=== PATIENT | female | born 1965 | race Caucasian/White ===

== ENCOUNTER 2024-02-06 21:19 | Inpatient (IN) | payer OTHER, SELFPAY ==
[2024-02-06] VITALS (12 sets, daily range): BP systolic 119–190; BP diastolic 78–135; BMI 31.4; BMI 29.6
--- NOTE | 2024-02-06 17:02 | ED.GENMED ---
History of Present Illness
<Cailn Robles PA-C - Last Filed: 02/06/24 23:01>
General
Chief Complaint: Head Injury
Time Seen by Provider: 02/06/24 16:45
History of Present Illness
History of Present Illness:
58-year-old female with history of high blood pressure currently medication presents to the urgency department for evaluation of dizziness and difficulty ambulating. She admits to having a drinking binge Saturday as she was 'feeling down and
depressed'. She denies any suicidal or homicidal ideation. States she drank half a handle of vodka, states she was heavily intoxicated and fell numerous times. She woke the next day with significant diffuse body pain and numerous ecchymoses on
the extremities as well as the right forehead. She called out of work for the next several days at which time she essentially laid in bed and did not consume much in the way of fluids or food. She did not drink any further alcohol denies any other
coingestants. She went to work today and was noted to be having difficulty walking and thus was advised to come to the hospital. Currently she reports a mild headache, diffuse body pain, and noted hematuria this morning. Of note the patient
states that she habitually takes 5 Tylenol PM to sleep every day for least the past year and has been taking routine doses throughout the week due to her acute pain, does not take NSAIDs due to gastric bypass
Past History
<Calin Robles PA-C - Last Filed: 02/06/24 23:01>
Past History
ED Past Medical History: HTN
ED Past Surgical History: Other (Gastric bypass)
Social History
Tobacco: Non-smoker
Alcohol: None
Drug: None
Review of Systems
<Calin Robles PA-C - Last Filed: 02/06/24 23:01>
Review of Systems
Allergies reviewed?: Yes
All Other Systems: ROS reviewed and negative except as documented in HPI and ROS
Phy Exam
<Calin Robles PA-C - Last Filed: 02/06/24 23:01>
Physical Exam
Physical Exam:
GEN: Well appearing, NAD, WDWN
Eyes: PERRLA, EOMs intact, no scleral icterus
HENT: NCAT, oral mucosa moist
Lungs: CTAB, no wheezes, rales, rhonchi, normal chest wall excursion
Cardiac: RRR, no M/R/G, no peripheral edema. Radial pulses 2+ bilat
Abdomen: Soft, mild epigastric tenderness, no rigidity or peritoneal signs
Neuro: AO x 3, no focal deficits to BUE/BLE, normal sensation throughout
MSK: No gross deformity or ecchymosis. Diffuse ecchymosis to the upper and lower extremities
Skin: No rashes, petechiae. Normal color, no pallor or jaundice.
Psych: Calm, cooperative, proper hygiene
Course
<Calin Robles PA-C - Last Filed: 02/06/24 23:01>
Orders/Labs/Results
Orders:
Orders
02/06/24 Dinner
Regular
02/06/24 16:[address] [CT Head W/o Iv Contrast] Urgent
Comment:
Reason For Exam: trauma, headache
02/06/24 17:03
Acetaminophen Urgent
Comment: ADDON
Complete Blood Count/With Diff Urgent
Comprehensive Metabolic Panel Urgent
Creatine Phosphokinase Urgent
Comment: ADD ON
Hepatitis A IgM Antibody Urgent
Hepatitis B Core Ab, IgM Urgent
Hepatitis B Surface Antigen Urgent
Hepatitis C Antibody Urgent
Magnesium Urgent
Comment: ADD ON
Phosphorus Urgent
Comment: ADD ON
Salicylate Urgent
Comment: ADDON
02/06/24 17:32
Lactated Ringers [Lr] 1,000 ml IV BOLUS
02/06/24 17:35
Add On- LAB Urgent
Tests Added?: CPK
02/06/24 18:21
HYDROmorphone [Dilaudid] 0.25 mg IV NOW STA
02/06/24 18:43
Add On- LAB Urgent
Tests Added?: acetaminophen, salicylate
02/06/24 18:44
Prothrombin Time Urgent
02/06/24 18:57
Venous Blood Gas Urgent
%Oxygen/Room Air: 98
02/06/24 19:50
0.9% Sodium Chloride 1000 ml [Nss] 1,000 ml IV BOLUS
02/06/24 20:02
Acetylcysteine [Acetadote] 12,840 mg 0.45% Sodium Chloride 250 ml [0.45%NaCl] 200 ml IV NOW
02/06/24 20:09
Fomepizole 1,280 mg 0.9% Sodium Chloride 100 ml [Nss] 100 ml IV NOW
02/06/24 20:15
Urinalysis Reflex To Culture Urgent
Date Specimen was Collected: 02/06/24
Time Specimen was Collected: 19:00
Urine Drug Abuse Screen Urgent
Date Specimen was Collected: 02/06/24
Time Specimen was Collected: 19:00
Urine Microscopic Reflex Cult Urgent
Urine Culture Urgent
ZEHRA Source: U
Specimen Description:
Date Specimen was Collected: 02/06/24
Time Specimen was Collected: 19:00
02/06/24 20:23
US Abd W Abd Doppler Urgent
Comment:
Reason For Exam: elevated liver enzymes
02/06/24 20:42
ZAFAR, IgG Reflex to HEp-2 [S] Urgent
Ceruloplasmin [S] Urgent
Liver-Kidney Microsome Ab-IgG [S] Urgent
Mitochondrial M2 Ab, IgG [S] Urgent
Soluble Liver Antigen Ab [S] Urgent
02/06/24 20:45
Sterile Water For Inj [Sterile Water For Injection 1000 ml] 1,000 ml Sodium Bicarbonate 150 meq IV 150 mls/hr
Nursing to Place Non Medication Order As Directed
Physician Order: OK to start running fluids after bolus complete
02/06/24 20:51
Admit/Transfer Patient As Directed
Co-Sign Provider:
Level of Care: Inpatient admission
Assign to:: IMU- Intermediate Care
Physician / Group: Aster Patel
Diagnosis: renal failure, severely elevated liver enzymes
Reason for Hospitalization: renal failure, severely elevated liver enzymes
Expected length of stay greater than two midnights?: Yes
ELOS- Estimated Length of Stay in days: 3
I certify the patient meets the requirements for IP care: Yes
PRN Pain Medication Management As Directed
May give lesser potent ordered pain med per pt: Yes
preference::
Protocol:: Medication orders for pain may be administered in a
manner that supports deferring to patient preference
when the pt is:
- Requesting an ordered lesser potent pain medication.
Least to most potent pain medications are defined
as: acetaminophen < NSAID < tramadol < opioids
(morphine, oxycodone, hydromorphone).
- Requesting a lesser dose of the same medication IF
ORDERED.
- Requesting a less intrusive route of administration
if both routes are prescribed by the provider (PO <
IV).
02/06/24 20:58
Add On- LAB Urgent
Tests Added?: urine drug
02/06/24 20:59
Code Status As Directed
Resuscitation Status: Full Code
02/06/24 21:08
Add On- LAB Urgent
Tests Added?: magnesium, phosphorous
02/06/24 21:11
Urine Creatinine Routine
Urine Sodium Routine
02/06/24 21:15
Acetylcysteine [Acetadote] 4,280 mg 0.45% Sodium Chloride 500 ml [0.45%NaCl] 500 ml IV ONCE
02/06/24 22:29
GASTROINTESTINAL CONSULT Routine
Consulting Provider: Skip Velasquez
Was physician already notified: Yes
NEPHROLOGY CONSULT Routine
Consulting Provider: Calin Khan
Was physician already notified: Yes
Activity As Directed
Activity Level: As Tolerated
Pneumatic Compression Sleeves As Directed
Type: Knee high
Vital Signs As Directed
Frequency: Per unit guidelines
Weight As Directed
Frequency: Daily
DX Deep Vein Thrombosis Video Routine
02/07/24 01:30
Acetylcysteine [Acetadote] 8,560 mg 0.45% Sodium Chloride 1000 ml [0.45%NaCl] 1,000 ml IV ONCE
02/07/24 06:00
Complete Blood Count/With Diff IN AM
Comprehensive Metabolic Panel IN AM
Ferritin IN AM
INR [Prothrombin Time] IN AM
Iron IN AM
Magnesium IN AM
TSH IN AM
Total Iron Binding IN AM
02/07/24 08:00
Fomepizole 856 mg 0.9% Sodium Chloride 100 ml [Nss] 100 ml IV Q12H
Pantoprazole [Protonix] 40 mg PO DAILY
02/08/24 06:00
Comprehensive Metabolic Panel IN AM
INR [Prothrombin Time] IN AM
02/09/24 06:00
Comprehensive Metabolic Panel IN AM
INR [Prothrombin Time] IN AM
02/10/24 06:00
INR [Prothrombin Time] IN AM
02/11/24 06:00
INR [Prothrombin Time] IN AM
Abnormal Lab Results
02/06/24 02/06/24 02/06/24
17:03 18:44 18:57
WBC 3.9 L 10^3/uL
(4.8-10.8)
MCH 31.2 H pg
(27.0-31.0)
Absolute Lymphs (auto) 1.1 L 10^3/uL
(1.2-3.4)
Immature Gran % 1.0 H %
(0-0.5)
PT 18.6 H Sec
(11.4-14.6)
VBG HCO3 20.0 L mmol/L
(22-27)
Sodium 132 L mmol/L
(135-145)
Carbon Dioxide 16 L mmol/L
(22-30)
BUN 34 H mg/dl
(7-17)
Creatinine 4.6 H* mg/dL
(0.6-1.0)
Magnesium 1.5 L mg/dl
(1.6-2.3)
Total Bilirubin 4.4 H mg/dl
(0.2-1.3)
AST > 7500 H* U/L
(14-36)
ALT 5463 H* U/L
(0-35)
Alkaline Phosphatase 299 H U/L
(38-126)
Creatine Kinase 267 H U/L
(30-135)
Urine Ketones
Ur Occult Blood Reflex
Urine Nitrite (Reflex)
Urine Bilirubin
Urine Urobilinogen
Leukocyte Esterase Rfl
Urine RBC
Urine WBC (Reflex)
Urine Bacteria (Reflex)
Urine Albumin (Reflex)
Salicylates < 1.0 L mg/dl
(2.0-20.0)
02/06/24
20:15
WBC
MCH
Absolute Lymphs (auto)
Immature Gran %
PT
VBG HCO3
Sodium
Carbon Dioxide
BUN
Creatinine
Magnesium
Total Bilirubin
AST
ALT
Alkaline Phosphatase
Creatine Kinase
Urine Ketones 1+ A
(Negative)
Ur Occult Blood Reflex 4+ A
(Negative)
Urine Nitrite (Reflex) Positive A
(Negative)
Urine Bilirubin 3+ A
(Negative)
Urine Urobilinogen 2+ A
(Neg - 1+)
Leukocyte Esterase Rfl Trace A
(Negative)
Urine RBC 60-70 A /HPF
(0-2)
Urine WBC (Reflex) 11-15 A /HPF
(0-5)
Urine Bacteria (Reflex) Moderate A
(Negative)
Urine Albumin (Reflex) 2+ A
(Neg - Trace)
Salicylates
02/06/24 17:03
02/06/24 17:03
Vital Signs
Initial and Last Documented VS:
Initial Vital Signs
Temp Pulse Resp BP Pulse Ox
98.5 F 118 18 119/90 95
02/06/24 16:40 02/06/24 16:40 02/06/24 16:40 02/06/24 16:40 02/06/24 16:40
Last Documented Vital Signs
Temp Pulse Resp BP Pulse Ox
98.2 F 104 23 171/87 93
02/06/24 22:33 02/06/24 22:15 02/06/24 22:15 02/06/24 22:10 02/06/24 22:10
<Maxx Suárez, DO - Last Filed: 02/06/24 19:47>
Orders/Labs/Results
Orders:
Orders
02/06/24 Dinner
Regular
02/06/24 16:[address] [CT Head W/o Iv Contrast] Urgent
Comment:
Reason For Exam: trauma, headache
02/06/24 17:03
Acetaminophen Urgent
Comment: ADDON
Complete Blood Count/With Diff Urgent
Comprehensive Metabolic Panel Urgent
Creatine Phosphokinase Urgent
Comment: ADD ON
Hepatitis A IgM Antibody Urgent
Hepatitis B Core Ab, IgM Urgent
Hepatitis B Surface Antigen Urgent
Hepatitis C Antibody Urgent
Magnesium Urgent
Comment: ADD ON
Phosphorus Urgent
Comment: ADD ON
Salicylate Urgent
Comment: ADDON
02/06/24 17:32
Lactated Ringers [Lr] 1,000 ml IV BOLUS
02/06/24 17:35
Add On- LAB Urgent
Tests Added?: CPK
02/06/24 18:21
HYDROmorphone [Dilaudid] 0.25 mg IV NOW STA
02/06/24 18:43
Add On- LAB Urgent
Tests Added?: acetaminophen, salicylate
02/06/24 18:44
Prothrombin Time Urgent
02/06/24 18:57
Venous Blood Gas Urgent
%Oxygen/Room Air: 98
02/06/24 19:50
0.9% Sodium Chloride 1000 ml [Nss] 1,000 ml IV BOLUS
02/06/24 20:02
Acetylcysteine [Acetadote] 12,840 mg 0.45% Sodium Chloride 250 ml [0.45%NaCl] 200 ml IV NOW
02/06/24 20:09
Fomepizole 1,280 mg 0.9% Sodium Chloride 100 ml [Nss] 100 ml IV NOW
02/06/24 20:15
Urinalysis Reflex To Culture Urgent
Date Specimen was Collected: 02/06/24
Time Specimen was Collected: 19:00
Urine Drug Abuse Screen Urgent
Date Specimen was Collected: 02/06/24
Time Specimen was Collected: 19:00
Urine Microscopic Reflex Cult Urgent
Urine Culture Urgent
ZEHRA Source: U
Specimen Description:
Date Specimen was Collected: 02/06/24
Time Specimen was Collected: 19:00
02/06/24 20:23
US Abd W Abd Doppler Urgent
Comment:
Reason For Exam: elevated liver enzymes
02/06/24 20:42
ZAFAR, IgG Reflex to HEp-2 [S] Urgent
Ceruloplasmin [S] Urgent
Liver-Kidney Microsome Ab-IgG [S] Urgent
Mitochondrial M2 Ab, IgG [S] Urgent
Soluble Liver Antigen Ab [S] Urgent
02/06/24 20:45
Sterile Water For Inj [Sterile Water For Injection 1000 ml] 1,000 ml Sodium Bicarbonate 150 meq IV 150 mls/hr
Nursing to Place Non Medication Order As Directed
Physician Order: OK to start running fluids after bolus complete
02/06/24 20:51
Admit/Transfer Patient As Directed
Co-Sign Provider:
Level of Care: Inpatient admission
Assign to:: IMU- Intermediate Care
Physician / Group: Aster Patel
Diagnosis: renal failure, severely elevated liver enzymes
Reason for Hospitalization: renal failure, severely elevated liver enzymes
Expected length of stay greater than two midnights?: Yes
ELOS- Estimated Length of Stay in days: 3
I certify the patient meets the requirements for IP care: Yes
PRN Pain Medication Management As Directed
May give lesser potent ordered pain med per pt: Yes
preference::
Protocol:: Medication orders for pain may be administered in a
manner that supports deferring to patient preference
when the pt is:
- Requesting an ordered lesser potent pain medication.
Least to most potent pain medications are defined
as: acetaminophen < NSAID < tramadol < opioids
(morphine, oxycodone, hydromorphone).
- Requesting a lesser dose of the same medication IF
ORDERED.
- Requesting a less intrusive route of administration
if both routes are prescribed by the provider (PO <
IV).
02/06/24 20:58
Add On- LAB Urgent
Tests Added?: urine drug
02/06/24 20:59
Code Status As Directed
Resuscitation Status: Full Code
02/06/24 21:08
Add On- LAB Urgent
Tests Added?: magnesium, phosphorous
02/06/24 21:11
Urine Creatinine Routine
Urine Sodium Routine
02/06/24 21:15
Acetylcysteine [Acetadote] 4,280 mg 0.45% Sodium Chloride 500 ml [0.45%NaCl] 500 ml IV ONCE
02/06/24 22:29
GASTROINTESTINAL CONSULT Routine
Consulting Provider: Skip Velasquez
Was physician already notified: Yes
NEPHROLOGY CONSULT Routine
Consulting Provider: Calin Khan
Was physician already notified: Yes
Activity As Directed
Activity Level: As Tolerated
Pneumatic Compression Sleeves As Directed
Type: Knee high
Vital Signs As Directed
Frequency: Per unit guidelines
Weight As Directed
Frequency: Daily
DX Deep Vein Thrombosis Video Routine
02/07/24 01:30
Acetylcysteine [Acetadote] 8,560 mg 0.45% Sodium Chloride 1000 ml [0.45%NaCl] 1,000 ml IV ONCE
02/07/24 06:00
Complete Blood Count/With Diff IN AM
Comprehensive Metabolic Panel IN AM
Ferritin IN AM
INR [Prothrombin Time] IN AM
Iron IN AM
Magnesium IN AM
TSH IN AM
Total Iron Binding IN AM
02/07/24 08:00
Fomepizole 856 mg 0.9% Sodium Chloride 100 ml [Nss] 100 ml IV Q12H
Pantoprazole [Protonix] 40 mg PO DAILY
02/08/24 06:00
Comprehensive Metabolic Panel IN AM
INR [Prothrombin Time] IN AM
02/09/24 06:00
Comprehensive Metabolic Panel IN AM
INR [Prothrombin Time] IN AM
02/10/24 06:00
INR [Prothrombin Time] IN AM
02/11/24 06:00
INR [Prothrombin Time] IN AM
Abnormal Lab Results
02/06/24 02/06/24 02/06/24
17:03 18:44 18:57
WBC 3.9 L 10^3/uL
(4.8-10.8)
MCH 31.2 H pg
(27.0-31.0)
Absolute Lymphs (auto) 1.1 L 10^3/uL
(1.2-3.4)
Immature Gran % 1.0 H %
(0-0.5)
PT 18.6 H Sec
(11.4-14.6)
VBG HCO3 20.0 L mmol/L
(22-27)
Sodium 132 L mmol/L
(135-145)
Carbon Dioxide 16 L mmol/L
(22-30)
BUN 34 H mg/dl
(7-17)
Creatinine 4.6 H* mg/dL
(0.6-1.0)
Magnesium 1.5 L mg/dl
(1.6-2.3)
Total Bilirubin 4.4 H mg/dl
(0.2-1.3)
AST > 7500 H* U/L
(14-36)
ALT 5463 H* U/L
(0-35)
Alkaline Phosphatase 299 H U/L
(38-126)
Creatine Kinase 267 H U/L
(30-135)
Urine Ketones
Ur Occult Blood Reflex
Urine Nitrite (Reflex)
Urine Bilirubin
Urine Urobilinogen
Leukocyte Esterase Rfl
Urine RBC
Urine WBC (Reflex)
Urine Bacteria (Reflex)
Urine Albumin (Reflex)
Salicylates < 1.0 L mg/dl
(2.0-20.0)
02/06/24
20:15
WBC
MCH
Absolute Lymphs (auto)
Immature Gran %
PT
VBG HCO3
Sodium
Carbon Dioxide
BUN
Creatinine
Magnesium
Total Bilirubin
AST
ALT
Alkaline Phosphatase
Creatine Kinase
Urine Ketones 1+ A
(Negative)
Ur Occult Blood Reflex 4+ A
(Negative)
Urine Nitrite (Reflex) Positive A
(Negative)
Urine Bilirubin 3+ A
(Negative)
Urine Urobilinogen 2+ A
(Neg - 1+)
Leukocyte Esterase Rfl Trace A
(Negative)
Urine RBC 60-70 A /HPF
(0-2)
Urine WBC (Reflex) 11-15 A /HPF
(0-5)
Urine Bacteria (Reflex) Moderate A
(Negative)
Urine Albumin (Reflex) 2+ A
(Neg - Trace)
Salicylates
02/06/24 17:03
02/06/24 17:03
Vital Signs
Initial and Last Documented VS:
Initial Vital Signs
Temp Pulse Resp BP Pulse Ox
98.5 F 118 18 119/90 95
02/06/24 16:40 02/06/24 16:40 02/06/24 16:40 02/06/24 16:40 02/06/24 16:40
Last Documented Vital Signs
Temp Pulse Resp BP Pulse Ox
98.2 F 104 23 171/87 93
02/06/24 22:33 02/06/24 22:15 02/06/24 22:15 02/06/24 22:10 02/06/24 22:10
<Calin Robles PA-C - Last Filed: 02/06/24 23:01>
MDM/Problems Addressed
MDM/Problems Addressed:
Patient is overall clinically well-appearing and CT of the head is negative. She is found to have severe hepatorenal syndrome with anion gap of 15 however venous pH is normal. Suspicion is at this time for rhabdomyolysis although her CPK is not
markedly elevated, as well as acute on chronic acetaminophen overdose. She has minimal abdominal pain and this did not suspect hydronephrosis or biliary obstructive pathology. Discussed the case with the [facility] toxicology which should treat this
as a Tylenol overdose and recommendations for detailed chart. Patient will be admitted to the hospital service, N-acetylcysteine and fomepizole started in the emergency department
<Calin Robles PA-C - Last Filed: 02/06/24 23:01>
*Critical Care Note
Total Time (30-74mins, 75-104mins- exclusive of procedures): 75 minutes
comment:
Critical care time: 75 minutes
Critical care time was exclusive of: Separately billable procedures, treating other patients, and teaching time
Critical care was necessary to treat or prevent imminent or life-threatening deterioration of the following conditions: Hepatorenal syndrome
Critical care time spent personally by me on the following activities:
[x] Review of old charts
[x] Obtaining history from patient or surrogate
[x] Ordering and review of the laboratory studies
[x] Ordering and review of radiographic studies
[x] Ordering and performing treatments and interventions
[x] Patient patient's response to treatment
[x] Development of treatment plan with patient or surrogate
<Calin Robles PA-C - Last Filed: 02/06/24 23:01>
Update Note
Update Note:
Discussed case w/ [facility] Toxicology Dr Roger, recommends we treat this as acute on chronic APAP overdose. Recommendations as follows:
Standard 20hr protocol; repeat 16hr bag until the following criteria are met:
INR <2.0
APAP level 0
AST/ALT <1000 and down trending x 2
Fomepizole 15m/kg x 1, then 10mg/kg q12h x 4 doses
No criteria for transfer to transplant center
ED Attending Note
<Calin Robles PA-C - Last Filed: 02/06/24 23:01>
-
Portions of this chart may have been created with voice recognition software.� Occasional wrong word or��sound alike� substitutions may have occurred due to the inherent limitations of voice recognition software.
<Maxx Suárez DO - Last Filed: 02/06/24 19:47>
ED Attending Note
Patient seen and examined by attending physician: Yes
I performed the substantive portion of visit, reviewed & personally made and approve the management plan that is documented in note by myself or OCTAVIANO.: Yes
Discharge Plan
Departure
Patient Disposition: Admit
Date of Disposition: 02/06/24
Time of Disposition: 20:10
Admit to: IMU
Presentation/result/management discussed w/ accepting MD/DO: Hospitalist
Discharge Problem:
Hepatorenal syndrome
Interventions
Interventions:
*Risk Screen - Suicide Last Done: 02/06/24 17:08
*General Assessment Last Done: 02/06/24 16:53
*Neglect/Abuse Screening Last Done: 02/06/24 16:53
ED- Fall Risk Assessment Last Done: 02/06/24 16:51
*Nursing Disposition Last Done: 02/06/24 22:35
ED- Neurological Assessment Last Done: 02/06/24 16:51
ED-Skin Assessment Last Done: 02/06/24 16:51
Discharge Date and Time
Discharge Date/Time: 02/06/24 22:35
[2024-02-06 17:28] LABS: Albumin 4.3 g/dl (3.5-5.0); Alkaline Phosphatase 299 U/L (38-126); Blood Urea Nitrogen 34 mg/dl (7-17); Calcium 9.4 mg/dl (8.4-10.2); Carbon Dioxide 16 mmol/L (22-30); Estimated Creatinine Clearance 14 ml/min; Glucose 96 mg/dl (70-99); Total Bilirubin 4.4 mg/dl (0.2-1.3); Total Protein 7.1 g/dl (6.3-8.2); eGFR 10.46
[2024-02-06 17:36] LABS: Chloride 101 mmol/L (98-107); Potassium 4.1 mmol/L (3.5-5.1); Sodium 132 mmol/L (135-145)
[2024-02-06] MEDS: LR 1000 IV (17:39)
[2024-02-06 17:54] LABS: % Basophils 1.3 % (0-2); % Eosinophils 3.4 % (0-6); % Lymphocytes 29.3 % (20.5-51.1); % Monocytes 4.4 % (1.7-9.3); % Neutrophils 60.6 % (42.2-75.2); Absolute Basophils 0.1 10^3/uL (0-0.2); Absolute Eosinophils 0.1 10^3/uL (0-0.7); Absolute Lymphocytes 1.1 10^3/uL (1.2-3.4); Absolute Monocytes 0.2 10^3/uL (0.1-0.6); Absolute Neutrophils 2.3 10^3/uL (1.4-6.5); Hematocrit 40.8 % (37.0-47.0); Hemoglobin 14.6 g/dL (12.0-16.0); Mean Corp Hgb Conc. 35.8 g/dL (33.0-37.0); Mean Corpuscular Hgb 31.2 pg (27.0-31.0); Mean Corpuscular Volume 87.2 fL (81.0-99.0); Mean Platelet Volume 9.8 fL (7.4-10.4); Nucleated Red Blood Cells % 0 %; Platelet Count 303 10^3/uL (130-400); Red Blood Cell Count 4.68 10^6/uL (4.20-5.40); Red Cell Dist. Width 13.6 % (11.5-14.5); White Blood Cell Count 3.9 10^3/uL (4.8-10.8)
[2024-02-06 17:59] LABS: ALT (SGPT) 5463 U/L (0-35); AST (SGOT) > 7500 U/L (14-36)
[2024-02-06 18:13] LABS: Creatine Phosphokinase 267 U/L (30-135)
[2024-02-06] MEDS: DILAUDID 0.25 MG IV (18:25)
[2024-02-06 19:02] LABS: Venous Blood Gas B.E. -5.4 mmol/L (-4 to +4); Venous Blood Gas O2 Sat % 66.3 %; Venous Blood Gas pCO2 38 mmHg (35-48); Venous Blood Gas pH 7.33 (7.32-7.43); Venous Blood Gas pO2 38 mmHg (30-50)
[2024-02-06 19:03] LABS: Venous Blood Gas O2 Therapy %Oxygen/Room Air 98
[2024-02-06 19:13] LABS: INR 1.54; PT 18.6 Sec (11.4-14.6)
[2024-02-06 19:18] LABS: Acetaminophen 13 ug/ml (10-30); Salicylate < 1.0 mg/dl (2.0-20.0)
[2024-02-06] MEDS: NSS 1000 IV (20:22)
[2024-02-06 20:24] LABS: Urine Albumin 2+ (Neg - Trace); Urine Bilirubin 3+ (Negative); Urine Character Very Cloudy (Clear); Urine Color Brown; Urine Glucose Negative (Negative); Urine Ketone 1+ (Negative); Urine Leukocyte Trace (Negative); Urine Nitrite Positive (Negative); Urine Occult Blood 4+ (Negative); Urine Urobilinogen 2+ (Neg - 1+)
--- NOTE | 2024-02-06 20:24 | HPS.HSE ---
Family Physician
-
Family Physician: * NONE
Chief Complaint
-
dizziness
History of Present Illness
Ms. Kaya Jennings is a 58 yo woman with hx essential HTN, gastric bypass who presents to the ER with dizziness x 3 days after a night of significant alcohol intake.
Patient states she has been going through a hard time emotionally and on Saturday she binge drank vodka which isn't usual for her. She is not a daily drinker and does not often binge drink. That night she fell and hit her head. She woke up the next
day with significant headache. She felt very dizzy getting up and mainly rested in bed all day. She states she hardly drank fluids and hardly ate. She tried to go to work yesterday but walked with a walker because she felt so dizzy. She decided
to come to ER today. Patient states she only drinks coffee or energy drinks, does not hydrate well with water. Denies vomiting/diarrhea. No black or bloody stools. No abdominal pain. No fevers/chills. No chest pain. No LE swelling, no rash.
Patient reports taking Tylenol PM in evenings. She often ends up taking 5 pills within 2-3 hours (2500mg).
Since getting fluids in the ER she states she feels better and was able to get to the bathroom without wobbling which is new. Friend states she looks better. She also has appetite back.
Medical History
Past Medical History
Past Medical History: Reports Other (essential HTN, gastric bypass)
Past Surgical History: Reports Other
Social History
Tobacco: Smoker (1 pack/day )
Alcohol: Occasional (binge drank 4 days prior to admission which is not usual )
Family History
Family History: Not pertinent
Allergies / Home Medications
Allergies reflects when Allergies were last updated in [employer].
Home Medications with original date entered in [employer]
Allergy/Medication List:
Allergies
Allergy/AdvReac Type Severity Reaction Status Date / Time
No Known Allergies Allergy Verified 05/20/23 04:55
Home Medications
cholecalciferol (vitamin D3) 25 mcg (1,000 unit) tablet 25 mcg PO DAILY 08/05/14
Allergy Relief 1 tab PO DAILY 02/06/24
esomeprazole magnesium 20 mg capsule,delayed release (Nexium) 20 mg PO DAILY 02/06/24
glucosam 750 mg-chondroi 100 mg-hyalur 1.65 mg-CF borate 108 mg tablet (Move Free E[employer] App) 2 tab PO DAILY 02/06/24
glucosamine sulf dipot chlr,msm,chond 550 mg-C 30 mg-philomena 1 mg capsule (Glucosamine Chondroitin) 2 cap PO DAILY 02/06/24
Review of Systems
-
History Source: Patient
A 12 point ROS was completed and negative except as noted: Yes
Physical Exam
Vital Signs
Vital Signs
Temp Pulse Resp BP Pulse Ox
98.5 F 88 17 138/91 99
02/06/24 16:40 02/06/24 18:00 02/06/24 18:00 02/06/24 19:42 02/06/24 19:42
Physical Exam
General: No Apparent Distress and Conversant
HEENT: Other (scleral icteris)
Respiratory: Clear; No Wheezes
Cardiac: S1/S2 and Regular Rhythm
GI: Soft and Non Tender
Musculoskeletal: No Edema
Skin: Warm and Dry; No Rash
Neuro: AO x 3
Psych: Calm
Laboratory Results
-
02/06/24 17:03
02/06/24 17:03
Laboratory Results
PT 18.6 Sec (11.4-14.6) H 02/06/24 18:44
INR 1.54 02/06/24 18:44
Total Bilirubin 4.4 mg/dl (0.2-1.3) H 02/06/24 17:03
AST > 7500 U/L (14-36) H* 02/06/24 17:03
ALT 5463 U/L (0-35) H* 02/06/24 17:03
Alkaline Phosphatase 299 U/L (38-126) H 02/06/24 17:03
Data Reviewed
-
Diagnostic Radiology: Report Reviewed by me
Lab Data: Labs Reviewed by me
Impression/Plan
-
Ms. Kaya Jennings is a 58 yo woman with hx essential HTN, gastric bypass who presents to the ER with dizziness x 3 days after a night of significant alcohol intake. Her tyenol level is elevated in setting of taking 2500mg within several hours
nightly. She is found to have severely elevated liver enzymes likely explained by severe dehydration/shock liver in setting of acute on chronic tylenol toxicity. She is found to have renal failure likely from severe dehydration with reports of 3-4
days orthostasis without significant PO intake.
Triage VS: T 98.5, P 118, RR 18, BP 119/90, SpO2 95%
LABS: WBC 3.9, Hg 14.6, PLT 303, Na 132, K+ 4.1, CO2 16, BUN 34, Cr 4.6, T. Bili 4.4, AST > 7500, ALT 5463, Alk Phos 299, CK 267, INR 1.[address]
IMPRESSION:
No acute intracranial abnormality noted.
Per ER note:
'Discussed case w/ [facility] Toxicology Dr Roger, recommends we treat this as acute on chronic APAP overdose. Recommendations as follows:
Standard 20hr protocol; repeat 16hr bag until the following criteria are met:
INR <2.0
APAP level 0
AST/ALT <1000 and down trending x 2
Fomepizole 15m/kg x 1, then 10mg/kg q12h x 4 doses
No criteria for transfer to transplant center'
Severe Transaminitis
Acute Renal Failure
Concern for Tylenol Toxicity in setting of shock liver post alcohol binge
-case discussed between ER and Dr. Velasquez, no need for transfer
-admit to IMU
-abdominal US with doppler
-hep serologies, autoimmune hepatitis testing, ceruloplasmin, urine drug screen
-lactate
-will continue NAC protocol as written above and ordered, discussed with pharmacist.
-Will also continue Fomepizole - per toxicology this is recommended for delayed overdose to prevent further mitochondrial damage
-Sodium Bicarb @ 150cc/hr overnight
-daily INR
-GI consult
-Renal consult
Alcohol Binge
-patient denies this as a common occurrence. reports recent anxiety/depression. She was given list of resources to help by CM in ER
GERD
-INFORMATION TECHNOLOGY ASSISTANT PPI
DVT PPx SCD
FULL CODE
76 minutes spent on patient evaluation, medical decision making, coordination of care
[2024-02-06] MEDS: ACETADOTE 264.2 MG IV (20:29)
[2024-02-06 20:48] LABS: Urine Bacteria Moderate (Negative); Urine Red Blood Cell 60-70 /HPF (0-2)
[2024-02-06 21:26] LABS: Amphetamines Negative (Negative); Barbiturates Negative (Negative); Benzodiazepines Negative (Negative); Buprenorphine Negative (Negative); Cocaine Negative (Negative); Marijuana Negative (Negative); Methadone Negative (Negative); Methamphetamines Negative (Negative); Opiates Negative (Negative); Phencyclidine Negative (Negative); Tricyclic Antidepressants Negative (Negative)
[2024-02-06 21:56] LABS: Magnesium 1.5 mg/dl (1.6-2.3); Phosphorus 4.4 mg/dl (2.5-4.5)
[2024-02-06] MEDS: FOMEPIZOLE 101.28 MG IV (22:00)
[2024-02-06] MEDS: ACETADOTE 521.4 MG IV (22:04)
[2024-02-06] MEDS: SODIUM BICARBONATE 1150 MEQ IV (23:05)
[2024-02-06 23:30] LABS: Hepatitis A IgM Antibody Negative (Negative); Hepatitis B Core Ab, IgM Negative (Negative)
[2024-02-06 23:43] LABS: Hepatitis C Antibody Negative (Negative)
[2024-02-06 23:56] LABS: Lactic Acid 1.1 mmol/L (0.7-2.0)
[2024-02-07] VITALS (14 sets, daily range): BP systolic 154–179; BP diastolic 81–141; BMI 31.0
--- NOTE | 2024-02-07 01:56 | PTCARENOTE ---
patient arrived from ED, patient alert and verbal, able to make needs known, c/o nausea with no vomit, patient has scattered scratches and bruises to body in various stages of healing,
no c/o pain, assessment completed and charted, patient oob to bsc with assist of 1,
meds reviewed, nicotine patch ordered,
cell phone and glasss with in reach,
labs drawn and sent , no further needs at this time
[2024-02-07] MEDS: ACETADOTE 1042.8 MG IV (02:14)
[2024-02-07 06:46] LABS: INR 1.37; PT 16.9 Sec (11.4-14.6)
[2024-02-07 06:48] LABS: % Basophils 0.6 % (0-2); % Eosinophils 1.2 % (0-6); % Immature Granulocytes 0.9 % (0-0.5); % Lymphocytes 27.4 % (20.5-51.1); % Monocytes 5.9 % (1.7-9.3); Absolute Lymphocytes 0.9 10^3/uL (1.2-3.4); Absolute Monocytes 0.2 10^3/uL (0.1-0.6); Absolute Neutrophils 2.1 10^3/uL (1.4-6.5); Hematocrit 34.1 % (37.0-47.0); Hemoglobin 12.3 g/dL (12.0-16.0); Mean Corp Hgb Conc. 36.1 g/dL (33.0-37.0); Mean Corpuscular Hgb 31.5 pg (27.0-31.0); Mean Corpuscular Volume 87.4 fL (81.0-99.0); Mean Platelet Volume 9.4 fL (7.4-10.4); Nucleated Red Blood Cells % 0 %; Platelet Count 256 10^3/uL (130-400); White Blood Cell Count 3.2 10^3/uL (4.8-10.8)
[2024-02-07 07:10] LABS: Acetaminophen < 10 ug/ml (10-30); Albumin 3.4 g/dl (3.5-5.0); Alkaline Phosphatase 235 U/L (38-126); Blood Urea Nitrogen 35 mg/dl (7-17); Calcium 8.9 mg/dl (8.4-10.2); Carbon Dioxide 24 mmol/L (22-30); Chloride 99 mmol/L (98-107); Estimated Creatinine Clearance 25 ml/min; Glucose 97 mg/dl (70-99); Iron 77 ug/dl (37-170); Magnesium 1.6 mg/dl (1.6-2.3); Potassium 3.9 mmol/L (3.5-5.1); Sodium 134 mmol/L (135-145); Total Bilirubin 3.5 mg/dl (0.2-1.3); Total Protein 5.9 g/dl (6.3-8.2); eGFR 18.98
[2024-02-07 07:19] LABS: Percent Saturation 28 % (20-50); Total Iron Binding Capacity 275 ug/dl (265-497)
[2024-02-07 07:39] LABS: ALT (SGPT) 3493 U/L (0-35); AST (SGOT) 3155 U/L (14-36)
[2024-02-07 07:43] LABS: TSH 0.67 uIU/ml (0.47-4.68)
[2024-02-07] MEDS: APRESOLINE 5 MG IV (08:17)
[2024-02-07] MEDS: FOMEPIZOLE 100.856 MG IV ×2 (08:23→20:56)
[2024-02-07] MEDS: PROTONIX 40 MG PO (08:23)
[2024-02-07] MEDS: NICODERM TRANSDERMAL 14 MG TRANSDERM (08:24)
--- NOTE | 2024-02-07 09:52 | CON.GI ---
Addendum entered and electronically signed by Skip Velasquez MD 02/07/24 14:00:
I saw and examined the patient.
The medical assistant supervisor's note was reviewed and I agree with the note.
Comment: 58yo female presents with dizziness after 'binging' 1/2 bottle vodka on Saturday. Prior to that last drink was 2 weeks ago. She has also been taking Tylenol PM to sleep, about 2500mg daily. On presentation, LFTs markedly elevated,
hepatocellular pattern. Tylenol level 13, repeat <10 after NAC protocol started. Cr 4.6, improved to 2.8 with hydration. She reports dark urine. Had a fall at home. INR 1.54 on admission, down to 1.37. AAO on exam with no confusion. US
doppler normal vaculature, mild hepatomegaly, fatty liver.
REC:
Elevated LFTs could be multifactorial due to EtOH, Tylenol, dehydration (?shock liver, though no significant hypotension documented)
Complete NAC protocol
Trend LFTs, if continues to downtrend, no need for prolonged NAC rx
Told pt to stop EtOH and Tylenol
Check f/u INR and follow mental status
No indication for tertiary care transfer
Original Note:
Consultation
-
Date/Time Consultation Performed: 02/07/24
Reason for Consultation: severe transaminitis
Medical History
Chief Complaint / HPI
Chief Complaint: dizziness after recent alcohol binge
History of Present Illness:
Patient is 58 year old female with past medical history of hypertension, gastric bypass who presented to the ED 02/06/24 from home for dizziness several days after significant alcohol intake. She reports on Thursday 02/01 she was feeling down and
overwhelmed with family and work stress, so she bought a 'big' bottle of vodka and drank of half it. She reports falling (unsure of how many times) and hitting her head that night. For several days following, she felt dizzy, unsteady on her feet,
and had poor appetite. She had very little to eat or drink in the past few days besides her daily coffee and energy drink. She presented to the ED and GI was consulted for significant transaminitis.
She is tearful while discussing her episode of binge drinking. She says it is out of character, and typically avoids drinking given her family history of alcoholism. She typically has 1 drink 4-5 times per month; she estimates there are only 'a few
times per year' that she has 3 or more drinks at one time. She denies suicidal intent/ideation and self harm behaviors. She does have a history of a suicide attempt when she was 18 years old, when she took multiple pills (unsure what type). She was
seeing a psychiatrist as a teenager for family trauma, but does not follow with any providers or therapists now. She takes about 5 tylenol PM pills every night to help her sleep. A few times per week she will take an additional Tylenol during the
day for occasional headache. Her only daily medications now are joint supplements, vitamin D, tylenol, and daily acid reflux and allergy medicine. She denies using NSAIDs, blood thinners. She has no GI complaints, and says her appetite and
dizziness is improving. She denies abdominal pain, diarrhea, constipation, black/bloody stools, pain/difficulty/coughing with swallowing. She has daily bowel movements that are brown, formed, easy to pass. She has a history of bariatric surgery in
2011, and reports a normal colonoscopy and EGD prior to surgery.
Past Medical History
Past Medical History: HTN and Psychiatric (h/o suicide attempt (18yo))
Past Surgical History: Other (gastric bypass (2011), back surgery for herniated/ruptured disk (~2004))
Social History
Tobacco: Smoker (1 pack per day)
Alcohol: Binge Drinker
Drug: Former User (speed (snort) ~25yo)
Personal:
Living: Alone
Employment: Employed (retail)
Family History
Family History: Adopted, CAD (biological father- [place] (40s)), Cancer (biological aunt- liver and brain cancer), Hypertension and Other (alcoholism- biological father, biological paternal aunt, adoptive mother)
Allergies / Home Medications
Allergy/AdvReac Type Severity Reaction Status Date / Time
No Known Allergies Allergy Verified 05/20/23 04:55
�Medication �Instructions �Recorded
cholecalciferol (vitamin D3) 25 25 mcg PO DAILY 08/05/14
mcg (1,000 unit) tablet
Allergy Relief 1 tab PO DAILY 02/06/24
esomeprazole magnesium 20 mg 20 mg PO DAILY 02/06/24
capsule,delayed release (Nexium)
glucosam 750 mg-chondroi 100 2 tab PO DAILY 02/06/24
mg-hyalur 1.65 mg-CF borate 108 mg
tablet (Move Free [facility])
glucosamine sulf dipot 2 cap PO DAILY 02/06/24
chlr,msm,chond 550 mg-C 30 mg-philomena
1 mg capsule (Glucosamine
Chondroitin)
Review of Systems
-
All other systems: A 12 pt ROS was Negative except as stated above in HPI
Vital Signs
Temp Pulse Resp BP Pulse Ox
98.3 F 93 22 170/105 100
02/07/24 07:33 02/07/24 08:17 02/07/24 04:30 02/07/24 08:17 02/07/24 04:30
Physical Exam
Exam
General: Resting comfortably in bed, no acute distress. Well-appearing. Well-nourished, well-developed. Awake, alert, oriented x4.
Heart: Regular rate and rhythm.
Lungs: Nonlabored breathing. Clear and equal to auscultation bilaterally.
GI: Normal bowel sounds present. Abdomen soft, nontender, nondistended. No rebound, rigidity, guarding.
Extremities: No tremors in upper extremities. Abrasions on knees bilaterally.
Psych: Tearful while discussing alcohol use and family history. Appropriate and cooperative.
Results
WBC 3.2 10^3/uL (4.8-10.8) L 02/07/24 06:22
Hgb 12.3 g/dL (12.0-16.0) 02/07/24 06:22
Hct 34.1 % (37.0-47.0) L 02/07/24 06:22
MCV 87.4 fL (81.0-99.0) 02/07/24 06:22
Plt Count 256 10^3/uL (130-400) 02/07/24 06:22
Absolute Neuts (auto) 2.1 10^3/uL (1.4-6.5) 02/07/24 06:22
PT 16.9 Sec (11.4-14.6) H 02/07/24 06:22
INR 1.37 02/07/24 06:22
Sodium 134 mmol/L (135-145) L 02/07/24 06:22
Potassium 3.9 mmol/L (3.5-5.1) 02/07/24 06:22
Chloride 99 mmol/L (98-107) 02/07/24 06:22
Carbon Dioxide 24 mmol/L (22-30) 02/07/24 06:22
BUN 35 mg/dl (7-17) H 02/07/24 06:22
Creatinine 2.8 mg/dL (0.6-1.0) H 02/07/24 06:22
Calcium 8.9 mg/dl (8.4-10.2) 02/07/24 06:22
Total Bilirubin 3.5 mg/dl (0.2-1.3) H 02/07/24 06:22
AST 3155 U/L (14-36) H* 02/07/24 06:22
ALT 3493 U/L (0-35) H* 02/07/24 06:22
Alkaline Phosphatase 235 U/L (38-126) H 02/07/24 06:22
Hepatitis A IgM Ab Negative (Negative) 02/06/24 17:03
Hep B Core IgM Ab Negative (Negative) 02/06/24 17:03
Hepatitis C Antibody Negative (Negative) 02/06/24 17:03
Diagnostic Image Results:
Abdomen Ultrasound w Doppler 02/06/24:
IMPRESSION:
Normal ultrasound evaluation of the abdominal vasculature.
Mild hepatomegaly. Parenchymal echotexture suggesting nonspecific fibrofatty changes.
No gallstones or bile duct dilatation. Pancreas is partially obscured. Unremarkable as far as visualized.
Right renal 1 cm nonobstructing calculus.
Prior GI Procedures:
EGD:
2011- normal per patient
Colonoscopy:
2011- normal per patient
Assessment / Plan
-
Patient is 58 year old female with past medical history of hypertension, gastric bypass surgery (2011) who presented to the ED 02/06/24 from home for dizziness that persisted several days following alcohol binge. Her LFTs were found to be severely
elevated in the context of recent alcohol binge (02/01), significant tylenol use (at least 2.5g daily), dehydration. NAC protocol, fomepizole, sodium bicarb were initiated.
Impression:
Severe transaminitis on admission (AST >7500, ALT 5463)
- Possible etiologies include acetaminophen toxicity vs hypoperfusion/shock liver vs acute autoimmune hepatitis. Acute viral hepatitis panel negative 02/05.
- AST, ALT, total bilirubin, alk phos trending down today
- Reassured by INR downtrending; 1.54 --> 1.37 today
- No signs of fulminant hepatic failure and no indications to transfer to tertiary center at this time
Acetaminophen toxicity
- Tylenol levels 13 on admission --> repeat <10
- On NAC protocol, fomepizole, sodium bicarb
Alcohol use with recent binge drinking episode
ASHLEY - Renal consulted
History of suicide attempt (18yo) - Denies suicidal ideation/intent currently
Hypertension - Previously on metoprolol, but hasn't taken in past year
Recommendations:
- Agree with NAC 20h protocol and fomepizole per primary team.
- Continue trending AST, ALT, INR q12 hours. If lab abnormalities worsen, may reconsider transfer to tertiary center.
- Reevaluate for discontinuation of NAC (after she has received 25.6g NAC per the 20h protocol) based on labs and clinical stability. If AST, ALT, INR continue downtrending on CMP this evening, okay to discontinue NAC provided she is clinically
stable.
- Recommend patient follow up with PCP and/or establish care with mental health provider after discharge. Consider psychiatry consult while inpatient if appropriate.
- Will need outpatient follow up with GI- updated discharge information with this referral.
- Continue regular diet as tolerated.
- Continue PPI.
- Avoid hepatotoxic medications such as tylenol.
- Alcohol abstinence.
-
-
Thank you for consultation and allowing me to participate in the patient's care. Please call the production leader GI physician during the after hours with any questions or concerns.
[2024-02-07 10:00] LABS: Hepatitis B Surface Antigen Negative (Negative)
[2024-02-07] MEDS: SODIUM BICARBONATE 1150 MEQ IV ×2 (10:34→17:47)
[2024-02-07 12:26] LABS: Glucose - Point of Care 160 mg/dl (70-99)
[2024-02-07] MEDS: STERILE WATER FOR INJECTION 10 ML IV (13:31)
--- NOTE | 2024-02-07 13:33 | W.CON.NEPH ---
Consultation
-
Date/Time Consultation Requested: 02/06/2024 22:29
Date/Time Consultation Performed: 02/07/2024 1:39PM
Requesting Provider: Aster Patel
Performing Provider: Sissy Zepeda
Reason for Consultation: ASHLEY
Medical History
-
Chief Complaint: ASHLEY
History of Present Illness:
Ms. Jennings is a 58YOF with PMH of HTN, gastric bypass who presents to the ER with dizziness after binge drinking.
Briefly, the patient states she was going through a tough time and started binge drinking vodka on Saturday. She does not normally do things like that. She fell and hit her head on Saturday and since then has been having headaches and dizziness. She has
not been eatign/drinking since then. Presented to the ER yesterday. She also takes 5 pills a night of Tylenol. States that she feels a lot better after getting fluids and is hungry today. No longer feels so wobbly. Has not noticed any trouble with
urination.
Past Medical History
Past Medical History: HTN
Past Surgical History: Other (Gastric bypass)
Social History
Tobacco: Smoker
Alcohol: Binge Drinker
Drug: None
Employment: Employed
Family History
Family History: Not Pertinent
Allergies / Home Medications
Allergy/AdvReac Type Severity Reaction Status Date / Time
No Known Allergies Allergy Verified 05/20/23 04:55
�Medication �Instructions �Recorded �Confirmed �Type
cholecalciferol (vitamin D3) 25 25 mcg PO DAILY Supplement 08/05/14 02/06/24 History
mcg (1,000 unit) tablet
Allergy Relief 1 tab PO DAILY Allergies 02/06/24 02/06/24 History
esomeprazole magnesium 20 mg 20 mg PO DAILY Gastrointestinal 02/06/24 02/06/24 History
capsule,delayed release (Nexium) Issue
glucosam 750 mg-chondroi 100 2 tab PO DAILY Supplement 02/06/24 02/06/24 History
mg-hyalur 1.65 mg-CF borate 108 mg
tablet (Move Free [facility])
glucosamine sulf dipot 2 cap PO DAILY Supplement 02/06/24 02/06/24 History
chlr,msm,chond 550 mg-C 30 mg-philomena
1 mg capsule (Glucosamine
Chondroitin)
Review of Systems
-
History Source: Patient
All other systems: Negative unless noted
Constitutional: Fatigue
Physical Exam
Vital Signs
Vital Signs
Temp Pulse Resp BP Pulse Ox
98.3 F 92 23 154/93 98
02/07/24 07:33 02/07/24 10:38 02/07/24 10:38 02/07/24 10:38 02/07/24 10:43
Lab Results
WBC 3.2 10^3/uL (4.8-10.8) L 02/07/24 06:22
RBC 3.90 10^6/uL (4.20-5.40) L 02/07/24 06:22
Hgb 12.3 g/dL (12.0-16.0) 02/07/24 06:22
Hct 34.1 % (37.0-47.0) L 02/07/24 06:22
Plt Count 256 10^3/uL (130-400) 02/07/24 06:22
eGFR 18.98 02/07/24 06:22
Phosphorus 4.4 mg/dl (2.5-4.5) 02/06/24 17:03
Physical Exam
General: AOx3, No Distress and Nontoxic
HEENT: PERRL, EOMI, Anicteric, Conjunctivae Clear, Ear/Nose Intact, Hearing Normal, Oropharynx Clear/Moist, Dentition Intact, Facial Symmetry, Neck Supple, Trachea Midline, No JVD and No Thyromegaly
Respiratory: Clear
Cardiac: S1/S2 and Regular Rate/Rhythm
Breast: Deferred by me
Abdomen: Soft, Nontender, Nondistended, Normal Bowel Sounds and No Hepatosplenomegaly
Rectal: Deferred by Provider
Genito-urinary: No Costovertebral Tender and Clear Urine
Musculoskeletal: No Clubbing, No Cyanosis and No Edema
Skin: No Rash, Warm, Dry, No Clubbing, No Cyanosis, Normal Turgor and No Bruising
Neuro: Nonfocal/Grossly Intact
Hematologic/Lymphatic: No Cervical Lymphadenopathy
Psych: Mood/afflect pleasant, Insight/judgement good and Appropriate
Data Reviewed
-
CT Scan: Report Reviewed by me (no intracranial abnormality)
Labs: Labs Reviewed by me, Discussed with Physician, Discussed with Nurse and Discussed with Patient
Old Records: Reviewed
Assessment/Plan
-
Assessment:
Transamnitis
Acetaminophen toxicity
Alcohol abuse
ASHLEY
HTN
Plan:
- patient is beign treated for chonic tylenol toxicity -- fomepizole, sodium bicarb, NAC
- tylenol level already downtrending
- no role for HD at this time
- Cr is fortunately downtrending as well with this treatment
- continue to trend BMPs
- monitor I/Os
[2024-02-07] MEDS: ROCEPHIN 1000 MG IV (13:34)
--- NOTE | 2024-02-07 14:29 | CM ---
Patient seen at bedside with physicians. Patient stated that she lives alone in a 2 story home/town home with her dog. Patient indicated that she was having difficulty with bills for rent. Patient sated that her PCP is Ellis Awad and she is
in the process of transitioning to a different office. Patient uses the [facility] and declined [facility] support at this time. Patient was independent of ADL's and IADL's. CM will continue to follow for discharge planning needs.
Plan; home with VN;vs home with no needs. provide resource for home/rent information.
--- NOTE | 2024-02-07 14:33 | PTCARENOTE ---
Voided 300ml leanne - specimen sent.
--- NOTE | 2024-02-07 14:45 | CON.MD ---
Consultation - Medical
-
patient seen chart reviewed. spoke w nursing. patient is a 58 yr old woman who comes to w c/o dizziness / gait issues. she had fallen several times. she admits she consumed half handle of vodka. she took to her bed for a few days missing work.
when she returned to work she was advised to come to er as she was quite unsteady. she also admits she was taking five tylenol pm for sleep not realizing the deleterious effect of tylenol at this dose and combined w etoh. she had been upset when
she began drinking as she has stress at work, painful relationship w her two step d whom she raised, and $issues. she acknowledges she is depressed . was rx w xanax and lexapro in the past but stopped them when her md moved away and she no longer
had a pcp. she feels lexapro helpful. sleep disturbed w awakenings and initial insomnia appetite decreased w mild weight loss. some [place] and anergia. no suicidal thoughts. no psychosis
past psych hx some therapy re family issues in her teens and early 20's see social hx lexapro xanax as above
medical hx see above liver enzymes in the 3000's started on NAC patient with elevated tylenol level which is coming down cr initially over 4 but improving. Na 134 hx htn gerd bp 154/93
fh mother and father etoh
substance abuse see above re etoh. says bingeing w etoh is not usual for her. this is rare events she usually has one drink once or twice monthly no other substance use
social complicated childhood father a war bride who was nine months . after patient born there was a brother soon after mom was etoh abuser and left dad taking bro w her and 'dumping' patient w her p aunt and uncle who adopted her.
she always felt out of place in that family and did not learn til age 16 they were not her natural parents and was very resentful. she then a man with toddler kids and raised them but her relationship w them is narcisa. one d has an autistic
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 she feels however she has and continues to work hard to show she lives them but just gets dissed in
the end. patients adoptive mother would not acknowledge the step kids she raised and patient did not speak w her for 15 years until she came to apologize to her when she was dying of cancer. patient nursed her for 4 months until she . she does
not see her adoptive fa and her bio fa . she does not see her adoptive sibs. she does have friends who are supportive. she was never physically or sexually abused
mse alert ox3 very thoughtful woman who acknowledges many psychological issues and just wants to feel self worth and self esteem speech and thought process nl no psychosis mood is depressed tearful at times affect appropriate no si aver
intelligence insight can be there with some talking through issues judgment was impaired. patient really had no idea of the danger of excess tylenol / mixed w etoh.
dx unspecified depression r/o etoh abuse d/o
plan for now encourage patient to express her thoughts . she really did seem to benefit from even this hour. she expressed relief from talking. advised her that she may need to set strong boundaries w her (step)children and does not have to be at
their marcos and call. she may benefit from antidep eg lexapro but not while lft's are so high. would avoid bzp's given dangers of misuse. advised her to work on alternative means of attaining sleep. she did not realize antihistamine was the
sedating aspect of tylenol not tylenol itself. cbt strategies for sleep found on line could be helpful. psych will see her tomorrow. i do tend to believe she does not routinely abuse etoh but she does have strong fh of etoh and is at risk.
counseled re avoiding all etoh.
--- NOTE | 2024-02-07 15:26 | W.PN.HOSP.TC ---
Addendum entered and electronically signed by Alie Sims MD 02/07/24 16:37:
I saw and evaluated the patient independently. I reviewed the resident�s note and agree with findings and plan as documented by Dr. Amador.
GENERAL: well developed, well nourished, female in no apparent distress
HEENT: NC/AT
HEART: regular rate and rhythm, +S1, +S2
LUNGS : clear to auscultation bilaterally
ABDOM: soft, nontender, nondistended, + bowel sounds
EXT: no cyanosis, clubbing, or edema--bruises on legs
NEUROLOGIC: grossly intact
Acute Liver Failure--Likely secondary to acute alcohol toxicity on chronic acetaminophen overuse (about 2500mg at bedtime daily for sleep: 5 tabs of Tylenol X-strength PM)--One day of Binge drinking vodka on Saturday due to emotional stressor.
Occasional drinker (1 drink a week/month) otherwise-- AST: 7500, ALT: 5464, ALk phos 299, CK 267, INR 1.54. Improving today---Continue Acetyl Cystine protocol, serial Acetaminophen level checks (already downtrending)--Trend LFTs--Appreciate GI
input---Continue IVF--Can stop Fomepizole
Anion Gap Metabolic Acidosis--likely from alcoholic ketoacidosis/starvation ketosis/uremia--resolved with bicarb IVF
Acute Kidney injury--secondary to hypovolemia given history of poor PO intake. Improved with IVF, 2.8 today--apprec renal- Follow BMP
Alcohol binge--History of occasional alcohol consumption prior to binging. Recent emotional stressors--PPI for alcohol gastritis--apprec Psych consult--CM to arrange community resources per pt needs
UTI--Positive UA--Ceftriaxone IV once
DVT prophylaxis: SCD
Code status: Full Code
Original Note:
Today's Communication/Plan
-
Follow CMP, Continue NAC protocol, IVF, trend Tylenol level
Assessment / Plan
Assessment / Plan
Acute Liver Failure:
Likely secondary to acute alcohol toxicity on chronic acetaminophen overuse
History of chronic overuse of Acetaminophen (about 2500mg at bedtime daily for sleep: 5 tabs of Tylenol X-strength PM). One day of Binge drinking vodka on Saturday due to emotional stressor. Occasional drinker (1 drink a week/month) otherwise.
Severe transaminitis: On presentation: AST: 7500, ALT: 5464, ALk phos 299, CK 267, INR 1.54. Improving today
-Trend LFTs
-Appreciate GI input
-Continue Acetyl Cystine protocol, serial Acetaminophen level checks (already downtrending).
-Continue IVF
-Can stop Fomepizole
Anion Gap Metabolic Acidosis:
Urine ketones
Mildly elevated anion gap 15 on presentation. Resolved: 11 today. Bicarb 24
Secondary to alcohol ketoacidosis, starvation ketoacidosis, uremia
-Okay to discontinue Bicarb infusion
Acute Kidney injury:
- Cr 4.6 on presentation. Likely secondary to hypovolemia given history of poor PO intake. Improved with IVF, 2.8 today
- Apppreciate nephrology input
- Follow BMP
Alcohol binge:
History of occasional alcohol consumption prior to binging. Recent emotional stressors.
-PPI for alcohol gastritis
-Psych consult
-CM to arrange community resources per pt needs
UTI:
Positive UA
-Ceftriaxone IV once
DVT prophylaxis: SCD
Code status: Full Code
Anticipated Discharge: > 48 hours
Subjective/Interval History
-
Date of Service: February 07, 2024
Patient feels well today. Denies dizziness or headache. Reports normal appetite
CIWA-Ar = 0
Objective Data
-
Labs:
Laboratory Results
02/07/24
06:22
WBC 3.2 L
Hgb 12.3
Hct 34.1 L
Plt Count 256
PT 16.9 H
INR 1.37
Sodium 134 L
Potassium 3.9
Chloride 99
Carbon Dioxide 24
BUN 35 H
Creatinine 2.8 H
Glucose 97
Calcium 8.9
Total Bilirubin 3.5 H
AST 3155 H*
ALT 3493 H*
Alkaline Phosphatase 235 H
Vital Signs:
Vital Signs
Temp Pulse Resp BP Pulse Ox
98.3 F 84 19 161/88 98
02/07/24 11:09 02/07/24 14:00 02/07/24 14:00 02/07/24 14:00 02/07/24 10:43
I&O
02/06/24 02/07/24 02/08/24
06:59 06:59 06:59
Output Total 300 / 300
Balance -300 / -300
Review of Systems
-
History Source: Patient
Constitutional: Denies No Appetite
Respiratory: Denies Trouble Breathing
Cardiac: Denies Chest Pain, Palpitations or Syncope
Abdomen/GI: Denies Abdominal Pain, Nausea or Vomiting
Skin: Reports Other (skin abrasions on head and knees and R forehead)
Neuro: Denies Dizzy or Headache
Psych: Denies Anxious
Physical Exam
-
General: Well Developed, Well Nourished, No Apparent Distress and Comfortable
HEENT: Moist Mucous Membranes and Anicteric
Respiratory: Clear to Auscultation and Non Labored Respirations; Negative Wheezes, Rales, Rhonchi or Crackles
Cardiac: Regular Rhythm and S1/S2; Negative Murmur, Rub or Calf Tenderness
GI: Soft, Nontender, Nondistended, No Hepatosplenomegaly and Other (negative crain's sign)
Musculoskeletal: No Clubbing, No Cyanosis and No Edema
Skin: Warm, Dry and Other (skin abrasions on bilateral knees, right forehead. )
Neuro: Awake, Alert and Oriented; Negative Tremors
Hematologic / Lymphatic: Other (bruising noted on arms and legs)
Psych: Calm
[2024-02-07 17:30] LABS: Urine Sodium 73 mmol/L (30-90)
[2024-02-07] MEDS: SODIUM BICARBONATE IV (17:57)
[2024-02-07 19:55] LABS: Acetaminophen < 10 ug/ml (10-30); Alkaline Phosphatase 249 U/L (38-126); Blood Urea Nitrogen 31 mg/dl (7-17); Calcium 8.6 mg/dl (8.4-10.2); Carbon Dioxide 29 mmol/L (22-30); Chloride 98 mmol/L (98-107); Estimated Creatinine Clearance 41 ml/min; Glucose 131 mg/dl (70-99); Sodium 135 mmol/L (135-145); Total Bilirubin 1.9 mg/dl (0.2-1.3); Total Protein 5.4 g/dl (6.3-8.2); eGFR 34.55
[2024-02-07 20:07] LABS: ALT (SGPT) 2229 U/L (0-35); AST (SGOT) 1296 U/L (14-36)
[2024-02-07] MEDS: KCL 270 MEQ IV (21:19)
--- NOTE | 2024-02-07 21:51 | PTCARENOTE ---
Rec'd pt resting in bed, labs sent, bicarb drip continued as ordered. Pt assisted to BR. Labs sent and resulted. Infusing KCL as ordered. See assessment for further info. Will monitor.
[2024-02-08] VITALS (12 sets, daily range): BP systolic 149–188; BP diastolic 79–104; BMI 30.6
[2024-02-08] MEDS: SODIUM BICARBONATE 1150 MEQ IV (00:45)
[2024-02-08 03:45] LABS: Hematocrit 30.4 % (37.0-47.0); Hemoglobin 11.2 g/dL (12.0-16.0); Mean Corp Hgb Conc. 36.8 g/dL (33.0-37.0); Mean Corpuscular Hgb 31.3 pg (27.0-31.0); Mean Corpuscular Volume 84.9 fL (81.0-99.0); Mean Platelet Volume 9.1 fL (7.4-10.4); Platelet Count 267 10^3/uL (130-400); Red Blood Cell Count 3.58 10^6/uL (4.20-5.40); Red Cell Dist. Width 13.3 % (11.5-14.5); White Blood Cell Count 5.1 10^3/uL (4.8-10.8)
[2024-02-08 03:49] LABS: INR 1.11; PT 14.1 Sec (11.4-14.6)
[2024-02-08 04:08] LABS: Albumin 3.1 g/dl (3.5-5.0); Alkaline Phosphatase 271 U/L (38-126); Blood Urea Nitrogen 25 mg/dl (7-17); Calcium 8.5 mg/dl (8.4-10.2); Carbon Dioxide 33 mmol/L (22-30); Chloride 101 mmol/L (98-107); Estimated Creatinine Clearance 58 ml/min; Glucose 96 mg/dl (70-99); Potassium 3.4 mmol/L (3.5-5.1); Sodium 139 mmol/L (135-145); Total Bilirubin 1.7 mg/dl (0.2-1.3); Total Protein 5.5 g/dl (6.3-8.2); eGFR 52.47
[2024-02-08 04:19] LABS: ALT (SGPT) 2041 U/L (0-35); AST (SGOT) 895 U/L (14-36)
--- NOTE | 2024-02-08 07:02 | W.PN.HOSP.TC ---
Addendum entered and electronically signed by Alie Sims MD 02/08/24 13:23:
I saw and evaluated the patient independently. I reviewed the resident�s note and agree with findings and plan as documented by Dr. Amador.
GENERAL: well developed, well nourished, female in no apparent distress
HEENT: NC/AT
HEART: regular rate and rhythm, +S1, +S2
LUNGS : clear to auscultation bilaterally
ABDOM: soft, nontender, nondistended, + bowel sounds
EXT: no cyanosis, clubbing, or edema--bruises on legs
NEUROLOGIC: grossly intact
Acute Liver Failure--Likely secondary to acute alcohol toxicity on chronic acetaminophen overuse (about 2500mg at bedtime daily for sleep: 5 tabs of Tylenol X-strength PM)--One day of Binge drinking vodka on Saturday due to emotional stressor.
Occasional drinker (1 drink a week/month) otherwise-- AST: 7500, ALT: 5464, ALk phos 299, CK 267, INR 1.54. Improving today---finish Acetyl Cystine protocol, serial Acetaminophen level checks (already downtrending)--Trend LFTs--Appreciate GI
input---stop IVF-- stop Fomepizole--cleared for d/c with outpt labs next week if feels up to leaving (nauseous today)
Anion Gap Metabolic Acidosis--likely from alcoholic ketoacidosis/starvation ketosis/uremia--resolved with bicarb IVF
Acute Kidney injury--secondary to hypovolemia given history of poor PO intake. Improved with IVF, 1.2 today--apprec renal- Follow BMP
Alcohol binge--History of occasional alcohol consumption prior to binging. Recent emotional stressors--PPI for alcohol gastritis--apprec Psych consult--CM to arrange community resources per pt needs
UTI--Positive UA--Urine culture with lactobacillus (normal vaginal mike)--stop Ceftriaxone
DVT prophylaxis: SCD
Code status: Full Code
Original Note:
Today's Communication/Plan
-
Discharge planning
Assessment / Plan
Assessment / Plan
Acute Liver Failure:
Likely secondary to acute alcohol toxicity on chronic acetaminophen overuse
History of chronic overuse of Acetaminophen (about 2500mg at bedtime daily for sleep: 5 tabs of Tylenol X-strength PM). One day of Binge drinking vodka on Saturday due to emotional stressor. Occasional drinker (1 drink a week/month) otherwise.
Severe transaminitis: On presentation: AST: 7500, ALT: 5464, ALk phos 299, CK 267, INR 1.54. Significantly improving
-Appreciate GI input: Okay to discharge with outpatient follow up
-Continue Acetyl Cystine protocol, serial Acetaminophen level checks (already downtrending) and CMP Q12h.
-Continue IVF
-Fomepizole and N-Acetyl cystine protocol discontinued.
-Ondansetron IV given once for nausea, will reassess
Anion Gap Metabolic Acidosis:
Urine ketones
Mildly elevated anion gap 15 on presentation. Resolved with bicarb IVF
Secondary to alcohol ketoacidosis, starvation ketoacidosis, uremia
-Bicarb infusion switched to NS
Acute Kidney injury:
- Cr 4.6 on presentation. Likely secondary to hypovolemia given history of poor PO intake. Improved with IVF,
- Apppreciate nephrology input
- Follow BMP
Alcohol binge:
History of occasional alcohol consumption prior to binging. Recent emotional stressors.
-PPI for alcohol gastritis
-Psych consult
-CM to arrange community resources per pt needs
UTI:
Positive UA
-Ceftriaxone IV once
Hypomagnesemia:
-Mild.
-Replete
Hypertension:
Known history. Patient has been without metoprolol for 1 year while between PCPs
-Start Amlodipine 10mg daily
DVT prophylaxis: SCD
Code status: Full Code
Anticipated Discharge: Today
Subjective/Interval History
-
Date of Service: February 08, 2024
Pt complained of nausea and mild dizziness.
Objective Data
-
Labs:
Laboratory Results
02/07/24 02/08/24 02/08/24
19:28 03:29 18:00
WBC 5.1
Hgb 11.2 L
Hct 30.4 L
Plt Count 267
PT 14.1
INR 1.11
Sodium 135 139 Pending
Potassium 3.0 L 3.4 L Pending
Chloride 98 101 Pending
Carbon Dioxide 29 33 H Pending
BUN 31 H 25 H Pending
Creatinine 1.7 H 1.2 H Pending
Glucose 131 H 96 Pending
Calcium 8.6 8.5 Pending
Total Bilirubin 1.9 H D 1.7 H Pending
AST 1296 H* 895 H* Pending
ALT 2229 H* 2041 H* Pending
Alkaline Phosphatase 249 H 271 H Pending
Vital Signs:
Vital Signs
Temp Pulse Resp BP Pulse Ox
98.1 F 77 14 172/84 96
02/08/24 03:32 02/08/24 04:00 02/08/24 04:00 02/08/24 04:00 02/07/24 21:49
I&O
02/07/24 02/08/24 02/09/24
06:59 06:59 06:59
Intake Total 6450 / 6450
Output Total 3050 / 3050
Balance 3400 / 3400
Review of Systems
-
History Source: Patient
Respiratory: Denies Cough or Trouble Breathing
Cardiac: Denies Chest Pain or Palpitations
Abdomen/GI: Reports Nausea; Denies Abdominal Pain or Vomiting
Genitourinary: Denies Dysuria or Difficulty Voiding
Neuro: Reports Dizzy; Denies Headache
Physical Exam
-
General: Well Developed and Other (appears uncomfortable)
HEENT: Moist Mucous Membranes
Respiratory: Clear to Auscultation and Non Labored Respirations; Negative Wheezes, Rales, Rhonchi or Crackles
Cardiac: Regular Rhythm and S1/S2; Negative Murmur or Rub
GI: Soft, Nontender, Nondistended and Normal Bowel Sounds
Genito-urinary: Negative No Costovertebral Tender
Musculoskeletal: No Clubbing, No Cyanosis and No Edema
Skin: Warm and Dry; Negative Rash, Ulcers or Lesions
Neuro: Awake, Alert and Oriented
Hematologic / Lymphatic: Other (Mild bruising noted on arms and legs)
Psych: Calm
[2024-02-08] MEDS: NICODERM TRANSDERMAL 14 MG TRANSDERM (08:30)
[2024-02-08] MEDS: FOMEPIZOLE 100.856 MG IV (08:32)
[2024-02-08] MEDS: PROTONIX 40 MG PO (08:32)
--- NOTE | 2024-02-08 08:53 | W.PN.GI.CBS2 ---
Today's Communication / Plan
-
Stop fomepizole since it can cause nausea
INR normal, LFTs all coming down dramatically but not yet normal
Repeat LFTs as outpt in 1 week to confirm normalization
Stop EtOH and Tylenol- pt willing to do this
F/U in the office
Assessment / Plan
-
Summary: 58 year old female with past medical history of hypertension, gastric bypass surgery (2011) who presented to the ED 02/06/24 from home for dizziness that persisted several days following alcohol binge. Her LFTs were found to be severely
elevated in the context of recent alcohol binge (02/01), significant tylenol use (at least 2.5g daily), dehydration. NAC protocol, fomepizole, sodium bicarb were initiated.
Impression:
Markedly elevated AST/ALT due to mutifactorial causes- chronic tylenol use, EtOH, dehydration. Finished NAC. Labs dramatically improved. NO encephalopathy
Subjective
Subjective
Date of Service: February 08, 2024
Pt c/o severe nausea this am. Yesterday was able to eat better
Objective
Data Reviewed
Laboratory Data:
Laboratory Results
02/08/24 03:29
Laboratory Results
PT 14.1 Sec (11.4-14.6) 02/08/24 03:29
INR 1.11 02/08/24 03:29
Phosphorus 4.4 mg/dl (2.5-4.5) 02/06/24 17:03
Magnesium 1.6 mg/dl (1.6-2.3) 02/07/24 06:22
Total Bilirubin 1.7 mg/dl (0.2-1.3) H 02/08/24 03:29
AST 895 U/L (14-36) H* 02/08/24 03:29
ALT 2041 U/L (0-35) H* 02/08/24 03:29
Alkaline Phosphatase 271 U/L (38-126) H 02/08/24 03:29
Vital Signs and I&O:
Vital Signs
Temp Pulse Resp BP Pulse Ox
98.2 F 77 14 172/84 96
02/08/24 08:01 02/08/24 04:00 02/08/24 04:00 02/08/24 04:00 02/07/24 21:49
I&O
02/07/24 02/08/24 02/09/24
06:59 06:59 06:59
Intake Total 6450 / 6450
Output Total 3050 / 3050 500 / 500
Balance 3400 / 3400 -500 / -500
Physical Exam
Physical Exam
GI: Soft, Non Distended and Non Tender
[2024-02-08] MEDS: NSS 1000 IV ×3 (08:58→23:52)
[2024-02-08 09:44] LABS: Magnesium 1.4 mg/dl (1.6-2.3)
[2024-02-08] MEDS: ZOFRAN 4 MG IV ×2 (10:31→17:56)
--- NOTE | 2024-02-08 12:01 | W.PN.NEPH.PH ---
Today's Communication / Plan
-
- sign off
Assessment/Plan
-
Assessment:
Transamnitis
Acetaminophen toxicity
Alcohol abuse
ASHLEY
HTN
Plan:
- patient is beign treated for chonic tylenol toxicity -- fomepizole, sodium bicarb, NAC
- tylenol level already downtrending
- no role for HD at this time
- Cr is fortunately downtrending as well with this treatment and back to close to baseline
- continue to trend BMPs
- monitor I/Os
Nephrology will sign off at this time. Please call us back if any further questions
-
-
Date of Service: February 08, 2024
CC / HPI / ROS
-
Chief Complaint:
ASHLEY
History of Present Illness:
ASHLEY in the setting of tylenol toxicity. Cr peak 4.6, down to 1.2
excellent urine output
LFTs improving
Review of Systems:
nauseous
Labs
-
Labs:
WBC 5.1 10^3/uL (4.8-10.8) 02/08/24 03:29
RBC 3.58 10^6/uL (4.20-5.40) L 02/08/24 03:29
Hgb 11.2 g/dL (12.0-16.0) L 02/08/24 03:29
Hct 30.4 % (37.0-47.0) L 02/08/24 03:29
Plt Count 267 10^3/uL (130-400) 02/08/24 03:29
eGFR 52.47 02/08/24 03:29
Phosphorus 4.4 mg/dl (2.5-4.5) 02/06/24 17:03
Physical Exam
-
Vital Signs:
Vital Signs
Temp Pulse Resp BP Pulse Ox
98.4 F 79 19 176/100 96
02/08/24 11:42 02/08/24 10:00 02/08/24 10:00 02/08/24 10:00 02/07/24 21:49
Cardiovascular:: Regular rate and rhythm
Respiratory:: Bilateral: Coarse
Lung Excursion:: Normal
Abdomen:: Nontender and Soft
Bowel Sounds:: Normal
Extremity Edema:: None: Bilateral:
Payne Catheter: No
[2024-02-08] MEDS: NORVASC 10 MG PO (13:39)
[2024-02-08] MEDS: MAGNESIUM SULFATE 50 IV (13:40)
--- NOTE | 2024-02-08 14:00 | PTCARENOTE ---
Addendum entered by Fina Bee RN 02/08/24 15:57:
Norvasc was added and given to patient today. Patient states that she really does not feel well today. She felt better yesterday. Patient currently sleeping. Will continue to monitor.
Original Note:
Patient reports nausea, no vomiting. Medicated patient with one time dose of IV zofran. Patient got a little relief from zofran but still nauseous. Appetite fair today. Good urine output over 1000 mls today. Patient had BM today. IV fluids
infusing as ordered. Using call barr appropriately to call nurse. BP's elevated SBP 160-180. Norvasc was added AND
[2024-02-08 18:55] LABS: AST (SGOT) 601 U/L (14-36); Acetaminophen < 10 ug/ml (10-30); Albumin 3.3 g/dl (3.5-5.0); Alkaline Phosphatase 311 U/L (38-126); Blood Urea Nitrogen 17 mg/dl (7-17); Calcium 8.6 mg/dl (8.4-10.2); Carbon Dioxide 30 mmol/L (22-30); Chloride 101 mmol/L (98-107); Estimated Creatinine Clearance 70 ml/min; Glucose 143 mg/dl (70-99); Potassium 3.1 mmol/L (3.5-5.1); Sodium 138 mmol/L (135-145); Total Bilirubin 1.4 mg/dl (0.2-1.3); Total Protein 5.8 g/dl (6.3-8.2); eGFR > 60.00
[2024-02-08 19:04] LABS: ALT (SGPT) 1586 U/L (0-35)
--- NOTE | 2024-02-08 20:05 | PTCARENOTE ---
Resumed care of pt sitting up in bed AAOx3 watching movies. HR in the 80's in NSR with PVC's on the monitor. Lab results reviewed with marguerite DÍAZ, order obtained for Tala, and now infusing as ordered via right wrist INT, as well as NSS@150ml/hr.
POX 95% on RA. Lungs clear. Hyper bowel, round obese abd. Pt reports some improvement in nausea, denies need for nausea medication at this time. Pt ambulatory to bathroom with assist when needed. Palpable peripheral pulses present. Knee high seq in
place. No issues to report at this time. Will continue to monitor.
[2024-02-08] MEDS: KCL 270 MEQ IV (20:12)
[2024-02-09] VITALS (13 sets, daily range): BP systolic 131–180; BP diastolic 74–143; BMI 30.1
--- NOTE | 2024-02-09 05:49 | PTCARENOTE ---
Pt awake most of the night, unable to sleep. Pt frustrated and wanting to just sleep. Emotional support provided. BP slightly elevated overnight, did not meet criteria to give PRN medication. No other issues to report. IVF infusing as ordered. Will
continue to monitor.
[2024-02-09] MEDS: NSS 1000 IV (06:05)
[2024-02-09 06:11] LABS: AST (SGOT) 398 U/L (14-36); Albumin 3.3 g/dl (3.5-5.0); Alkaline Phosphatase 315 U/L (38-126); Blood Urea Nitrogen 11 mg/dl (7-17); Calcium 8.4 mg/dl (8.4-10.2); Carbon Dioxide 30 mmol/L (22-30); Chloride 105 mmol/L (98-107); Estimated Creatinine Clearance 77 ml/min; Glucose 101 mg/dl (70-99); Magnesium 1.3 mg/dl (1.6-2.3); Potassium 3.3 mmol/L (3.5-5.1); Sodium 141 mmol/L (135-145); Total Bilirubin 1.4 mg/dl (0.2-1.3); Total Protein 5.9 g/dl (6.3-8.2); eGFR > 60.00
[2024-02-09 06:29] LABS: ALT (SGPT) 1379 U/L (0-35)
--- NOTE | 2024-02-09 07:11 | W.PN.HOSP.TC ---
Addendum entered and electronically signed by Alie Sims MD 02/09/24 18:11:
I saw and evaluated the patient independently. I reviewed the resident�s note and agree with findings and plan as documented by Dr. Amador.
GENERAL: well developed, well nourished, female in no apparent distress
HEENT: NC/AT
HEART: regular rate and rhythm, +S1, +S2
LUNGS : clear to auscultation bilaterally
ABDOM: soft, nontender, nondistended, + bowel sounds
EXT: no cyanosis, clubbing, or edema--bruises on legs
NEUROLOGIC: grossly intact
Acute Liver Failure--Likely secondary to acute alcohol toxicity on chronic acetaminophen overuse (about 2500mg at bedtime daily for sleep: 5 tabs of Tylenol X-strength PM)--One day of Binge drinking vodka on Saturday due to emotional stressor.
Occasional drinker (1 drink a week/month) otherwise-- AST: 7500, ALT: 5464, ALk phos 299, CK 267, INR 1.54. Improved---finish Acetyl Cystine protocol, serial Acetaminophen level checks (already downtrending)--Trend LFTs--Appreciate GI input---stop
IVF-- stopped Fomepizole--cleared for d/c with outpt labs next week
Anion Gap Metabolic Acidosis--likely from alcoholic ketoacidosis/starvation ketosis/uremia--resolved with bicarb IVF
Acute Kidney injury--secondary to hypovolemia given history of poor PO intake. Improved with IVF, 0.9--apprec renal- Follow BMP
Alcohol binge--History of occasional alcohol consumption prior to binging. Recent emotional stressors--PPI for alcohol gastritis--apprec Psych consult--CM to arrange community resources per pt needs
UTI--Positive UA--Urine culture with lactobacillus (normal vaginal mike)--stop Ceftriaxone
DVT prophylaxis: SCD
Code status: Full Code
Original Note:
Today's Communication/Plan
-
Discharge planning
Assessment / Plan
Assessment / Plan
Acute Liver Failure:
Likely secondary to acute alcohol toxicity on chronic acetaminophen overuse
History of chronic overuse of Acetaminophen (about 2500mg at bedtime daily for sleep: 5 tabs of Tylenol X-strength PM). One day of Binge drinking vodka on Saturday due to emotional stressor. Occasional drinker (1 drink a week/month) otherwise.
Severe transaminitis: On presentation: AST: 7500, ALT: 5464, ALk phos 299, CK 267, INR 1.54. AST/ALT Significantly improving. Alk phos 315 today. Acetaminophen trend consistently <10
-Appreciate GI input: Okay to discharge with outpatient follow up
-Okay to stop IVF
-Fomepizole and N-Acetyl cystine protocol discontinued.
-Ondansetron IV given once for nausea, resolved
Anion Gap Metabolic Acidosis:
Urine ketones
Mildly elevated anion gap 15 on presentation. Resolved with bicarb IVF
Secondary to alcohol ketoacidosis, starvation ketoacidosis, uremia
-Okay to stop fluids
Acute Kidney injury:
- Cr 4.6 on presentation. Likely secondary to hypovolemia given history of poor PO intake. Resolved. Creatinine 0.9 today
- Apppreciate nephrology input
- Follow BMP
Alcohol binge:
History of occasional alcohol consumption prior to binging. Recent emotional stressors.
-PPI for alcohol gastritis
-Psych consult
-CM to arrange community resources per pt needs
UTI:
Positive UA
-Ceftriaxone IV once
Hypomagnesemia:
-Replete
Hypokalemia:
-Replete
Hypertension:
Known history. Patient has been without metoprolol for 1 year while between PCPs
-Amlodipine 10mg daily
-Will add valsartan 20 mg twice daily
DVT prophylaxis: SCD
Code status: Full Code
Anticipated Discharge: Today
Subjective/Interval History
-
Date of Service: February 09, 2024
Patient feels better today, nausea/dizziness/malaise resolved
Objective Data
-
Labs:
Laboratory Results
02/09/24 02/09/24
05:16 18:00
PT 14.0
INR 1.10
Sodium 141 Pending
Potassium 3.3 L Pending
Chloride 105 Pending
Carbon Dioxide 30 Pending
BUN 11 Pending
Creatinine 0.9 Pending
Glucose 101 H Pending
Calcium 8.4 Pending
Total Bilirubin 1.4 H Pending
AST 398 H Pending
ALT 1379 H* Pending
Alkaline Phosphatase 315 H Pending
Vital Signs:
Vital Signs
Temp Pulse Resp BP Pulse Ox
97.8 F 66 14 167/92 95
02/09/24 03:56 02/09/24 04:00 02/09/24 04:00 02/09/24 04:00 02/08/24 20:33
I&O
02/08/24 02/09/24 02/10/24
06:59 06:59 06:59
Intake Total 6450 / 6450 3640 / 3640
Output Total 3050 / 3050 6300 / 6300
Balance 3400 / 3400 -2660 / -2660
Review of Systems
-
History Source: Patient
Respiratory: Reports No Symptoms; Denies Trouble Breathing
Cardiac: Reports No Symptoms; Denies Chest Pain or Palpitations
Abdomen/GI: Reports No Symptoms; Denies Abdominal Pain, Nausea, Vomiting, Diarrhea or Constipated
Genitourinary: Reports No Symptoms; Denies Dysuria or Difficulty Voiding
Neuro: Denies Dizzy or Headache
Physical Exam
-
General: Comfortable
Respiratory: Clear to Auscultation and Non Labored Respirations; Negative Wheezes, Rales, Rhonchi or Crackles
Cardiac: Regular Rhythm and S1/S2; Negative Murmur, Rub or Calf Tenderness
GI: Soft, Nontender, Nondistended and Normal Bowel Sounds
Musculoskeletal: No Clubbing, No Cyanosis and No Edema
Skin: Warm and Dry
Neuro: Awake, Alert, Oriented and AO x 3; Negative Tremors
Psych: Calm
--- NOTE | 2024-02-09 07:40 | PTCARENOTE ---
Assumed care of patient. Patient was up all night, unable to sleep. Patient reports that nausea is much better. Not at all nauseous this AM. Looking at menu to order breakfast. BP's better overnight. IV fluids infusing as ordered.
[2024-02-09 08:02] LABS: Mitochondrial M2 Ab, IgG 16.2 Units (0.0-24.9)
[2024-02-09] MEDS: NICODERM TRANSDERMAL 14 MG TRANSDERM (08:39)
[2024-02-09] MEDS: NORVASC 10 MG PO (08:39)
[2024-02-09] MEDS: PROTONIX 40 MG PO (08:39)
[2024-02-09 08:47] LABS: ANA, IgG Reflex to HEp-2 None Detected (None Detected)
[2024-02-09] MEDS: KCL 40 MEQ PO (10:40)
[2024-02-09] MEDS: MAGNESIUM SULFATE 100 IV (10:40)
--- NOTE | 2024-02-09 10:48 | W.PN.GI.CBS2 ---
Today's Communication / Plan
-
Feeling better today
OK for d/c
Repeat LFTs next week to confirm normalization
F/U with me in GI office
Stop EtoH and Tylenol
Assessment / Plan
-
Summary: 58 year old female with past medical history of hypertension, gastric bypass surgery (2011) who presented to the ED 02/06/24 from home for dizziness that persisted several days following alcohol binge. Her LFTs were found to be severely
elevated in the context of recent alcohol binge (02/01), significant tylenol use (at least 2.5g daily), dehydration. NAC protocol, fomepizole, sodium bicarb were initiated.
Impression:
Markedly elevated AST/ALT due to mutifactorial causes- chronic tylenol use, EtOH, dehydration. Finished NAC. Labs dramatically improved. NO encephalopathy
Subjective
Subjective
Date of Service: February 09, 2024
Feels much better. Nausea has resolved
Objective
Data Reviewed
Laboratory Data:
Laboratory Results
02/08/24 03:29
Laboratory Results
PT 14.0 Sec (11.4-14.6) 02/09/24 05:16
INR 1.10 02/09/24 05:16
Phosphorus 4.4 mg/dl (2.5-4.5) 02/06/24 17:03
Magnesium 1.3 mg/dl (1.6-2.3) L 02/09/24 05:16
Total Bilirubin 1.4 mg/dl (0.2-1.3) H 02/09/24 05:16
AST 398 U/L (14-36) H 02/09/24 05:16
ALT 1379 U/L (0-35) H* 02/09/24 05:16
Alkaline Phosphatase 315 U/L (38-126) H 02/09/24 05:16
Vital Signs and I&O:
Vital Signs
Temp Pulse Resp BP Pulse Ox
97.9 F 78 14 175/97 95
02/09/24 07:30 02/09/24 07:12 02/09/24 07:12 02/09/24 07:12 02/08/24 20:33
I&O
02/08/24 02/09/24 02/10/24
06:59 06:59 06:59
Intake Total 6450 / 6450 3640 / 3640
Output Total 3050 / 3050 6300 / 6300
Balance 3400 / 3400 -2660 / -2660
Physical Exam
Physical Exam
GI: Soft, Non Distended and Non Tender
--- NOTE | 2024-02-09 14:00 | PTCARENOTE ---
Patient feels good today. Denies any nausea. Magnesium drip infusing as ordered. Patient to be discharged later today.
[2024-02-09 16:57] LABS: Ceruloplasmin 25 mg/dL (16-45)
--- NOTE | 2024-02-09 19:10 | W.DCSUMMARY ---
Addendum entered and electronically signed by Alie Smis MD 02/09/24 19:43:
Read, reviewed, and agree. See same day progress note for additional details. Time spent coordinating care, DC planning, review of DC plan of care with resident, transition of care, review of records in EMR, med rec, consults, notes, d/w
consultants, nursing, family, and CM = 45 minutes.
Original Note:
Discharge Summary
Discharge Data
Date of Admission: 02/06/24
Date of Discharge: 02/09/24
-
Pending Results: Yes
Additional Pending Results:
Autoimmune hepatitis labs: soluble liver antigen IgG antibody, liver/kidney
Hospital Course
Discharge Physician: Zoey Amador MD; Alie Sims MD.
Primary discharge diagnosis: Acute liver failure, acute alcohol toxicity, chronic acetaminophen overuse, anion gap metabolic acidosis, acute kidney injury, hypomagnesemia, hypokalemia
Chronic discharge diagnosis: Hypertension
Hospital Course: 58-year-old female with history of hypertension, gastric bypass, chronic acetaminophen overuse, presented to the ED with dizziness and multiple falls x 3 days, onset after a night of significant alcohol intake 4 days prior. Upon
arrival, she was mildly hypertensive 138/91 tachycardic 118, leukocytopenia with 3.9, hyponatremic 132, creatinine 4.6, bicarb 16. Total bilirubin 4.4, AST 7500, ALT 5464, alk phos 299, CPK 267, INR 1.54, acetaminophen level 13.
N-acetylcysteine protocol was promptly started after collaboration with [facility] Toxicology Dr Roger. Fomepizole was also started. INR, CMP, acetaminophen levels were closely monitored. Generous IV fluids were given.
Anion gap metabolic acidosis resolved with bicarb IV, which was then converted to normal saline
Hypokalemia and hypomagnesemia was supplemented
Acute kidney injury significantly improved each day creatinine resolved by discharge
Liver function tests steadily improved throughout stay, to be followed outpatient.
Viral hepatitis tests were negative.
Urinalysis indicated asymptomatic UTI: Ceftriaxone was given. Urine culture eventually grew lactobacillus (normal vaginal mike), ceftriaxone discontinued.
Patient spoke to psychiatrist: Recent significant social/emotional stressors in her life. She will benefit from psychotherapy in outpatient setting. Patient indicated resolution of symptoms, clinical improvement noted. Patient indicated readiness
for discharge.
Will need to follow-up with gastroenterology within 1 week of discharge. Patient advised to avoid Tylenol and alcohol
Patient has been without prescribed metoprolol for about a year due to being between PCPs. Amlodipine and losartan started. Need follow-up with PCP
Will need to follow-up with PCP within 1 week of discharge, will need BMP, liver function tests, magnesium level.
She was advised to use [id number] melatonin supplement for sleep, as chronic acetaminophen overuse was due to patient taking Tylenol PM up to 2500mg daily for sleep (for sleep inducing effect of diphenhydramine).
Relevant Data:
Abdominal ultrasound with abdominal Doppler 02/05: Normal ultrasound evaluation of the abdominal vasculature. Mild hepatomegaly. Parenchymal echotexture suggesting nonspecific fibrofatty changes. No gallstones or bile duct dilatation. Pancreas is
partially obscured. Unremarkable as far as visualized. Right renal 1 cm nonobstructing calculus
Head CT without contrast 02/05: No acute intracranial abnormality noted
Consults:
Gastroenterology
Nephrology
Psychiatry
Discharge Plan
-
Patient Disposition: Home (Routine Discharge)
Discharge Diagnosis/Procedures: Alcohol toxicity, Acute liver failure, chronic Acetaminophen toxicity, Acute kidney injury, hypertension, hypomagnesemia, hypokalemia, Anion gap metabolic acidosis
Condition: Good
Diet: Low Sodium
Activity: No restrictions
Driving Restrictions: As prior to admission
Bathing Restrictions: None
Blood Work: Will need BMP, LFTs, and Magnesium one week from discharge
Awaiting results for: Autoimmune Hepatitis testing
Instructions: High blood pressure in adults, Acetaminophen poisoning, Acetaminophen Poisoning (DC)
Referrals:
Skip Velasquez MD [Active] - (Please follow up with GI office for evaluation of liver function tests.)
NONE,* [Family Provider] -
Zoey Amador MD, Resident [Family Practice Resident Year2] - in one week
Additional Discharge Medication Instructions: Strongly advised to avoid alcohol and Tylenol.
You can use over the counter melatonin supplement for sleep
Will benefit from psychotherapy
Will need to follow up with Gastroenterology one week from discharge to evaluate liver function
Follow up with Primary care physician, Zoey Amador MD, in one week of discharge
Prescriptions:
New
valsartan 40 mg Tablet
20 mg PO BID Qty: 30 0RF
amlodipine 10 mg Tablet
10 mg PO DAILY Qty: 30 0RF
Continued
cholecalciferol (vitamin D3) 25 mcg (1,000 unit) Tablet
25 mcg PO DAILY
Allergy Relief
1 tab PO DAILY
esomeprazole magnesium [Nexium] 20 mg Capsule,Delayed Release(Dr/Ec)
20 mg PO DAILY
Move Free Joint Health 750 mg-100 mg- 1.65 mg-108 mg Tablet
2 tab PO DAILY
Glucosamine Chondroitin 550-30-1 mg Capsule
2 cap PO DAILY
Discharge Orders:
Discharge Patient (As Directed); Ordered 02/09/24
Ordered By: Zoey Amador
Discharge Date and Time
Discharge Date/Time: 02/09/24 15:30
Print Language: KENYAN
[2024-02-09 21:01] LABS: LKM-1 Ab (IgG) 0.8 U (0.0-24.9); Soluble Liver Antigen Ab 1.3 U (0.0-24.9)
== END 2024-02-09 15:30 | disposition home or self-care (01) | DRG 918 ==
LOC: IMU 21:19
PROVIDERS: Physician Assistant; Student in an Organized Health Care Education/Training Program; ADMITTING PHYSICIAN Student in an Organized Health Care Education/Training Program; ATTENDING PHYSICIAN Internal Medicine; CONSULT PHYSICIAN Psychiatry & Neurology Psychiatry; CONSULT PHYSICIAN Specialist; EMERGENCY PHYSICIAN Emergency Medicine; OTHER PHYSICIAN Student in an Organized Health Care Education/Training Program
DX: T51.0X1A Toxic effect of ethanol, accidental (unintentional), initial encounter (principal); E87.1 Hypo-osmolality and hyponatremia; N17.8 Other acute kidney failure; E87.29 Other acidosis; K71.10 Toxic liver disease with hepatic necrosis, without coma; K70.40 Alcoholic hepatic failure without coma; I10 Essential (primary) hypertension; F32.A Depression, unspecified; F10.10 Alcohol abuse, uncomplicated; K76.0 Fatty (change of) liver, not elsewhere classified; T39.1X1A Poisoning by 4-Aminophenol derivatives, accidental (unintentional), initial encounter; E87.6 Hypokalemia; E83.42 Hypomagnesemia; E86.1 Hypovolemia; K21.9 Gastro-esophageal reflux disease without esophagitis; E86.0 Dehydration; F17.210 Nicotine dependence, cigarettes, uncomplicated; R82.71 Bacteriuria; R29.6 Repeated falls; R51.9 Headache, unspecified; W19.XXXA Unspecified fall, initial encounter; Y92.239 Unspecified place in hospital as the place of occurrence of the external cause; Z63.8 Other specified problems related to primary support group; Z79.899 Other long term (current) drug therapy; Z91.51 Personal history of suicidal behavior; Z98.84 Bariatric surgery status; Z81.1 Family history of alcohol abuse and dependence; Z82.49 Family history of ischemic heart disease and other diseases of the circulatory system
CPT/HCPCS: 70450; 76700; 80053; 80143; 80179; 80306; 81003; 81015; 82390; 82550; 82570; 82728; 82805; 82962; 83516; 83540; 83550; 83605; 83735; 84100; 84300; 84443; 85025; 85027; 85610; 86038; 86376; 86381; 86705; 86709; 86803; 87086; 87340; 93975; 96361; 96374; 96375; 99291; 99292; J0132; J1451; J7030

== ENCOUNTER → 2024-02-11 11:15 | Outpatient (REF) | payer OTHER, SELFPAY ==
[2024-02-11 15:48] LABS: ALT (SGPT) 675 U/L (0-35); AST (SGOT) 131 U/L (14-36); Albumin 3.9 g/dl (3.5-5.0); Alkaline Phosphatase 306 U/L (38-126); Blood Urea Nitrogen 11 mg/dl (7-17); Calcium 9.1 mg/dl (8.4-10.2); Carbon Dioxide 28 mmol/L (22-30); Chloride 100 mmol/L (98-107); Direct Bilirubin 0.6 mg/dl (0.0-0.4); Glucose 114 mg/dl (70-99); Magnesium 1.4 mg/dl (1.6-2.3); Potassium 3.6 mmol/L (3.5-5.1); Sodium 134 mmol/L (135-145); Total Protein 6.6 g/dl (6.3-8.2); eGFR > 60.00
== END ==
LOC: HWLAB 11:15
PROVIDERS: ATTENDING PHYSICIAN Student in an Organized Health Care Education/Training Program; FAMILY PHYSICIAN Family Medicine
DX: N19 Unspecified kidney failure (principal)
CPT/HCPCS: 36415; 80048; 80076; 83735

== ENCOUNTER 2024-08-28 12:27 | Emergency (ER) | payer OTHER, SELFPAY ==
[2024-08-28 12:36] VITALS: BP 153/88
--- NOTE | 2024-08-28 13:15 | ED.GENMED ---
History of Present Illness
General
Chief Complaint: Cold/Flu/URI Symptoms
Source: patient
Exam Limitations: none
Time Seen by Provider: 08/28/24 13:07
History of Present Illness
History of Present Illness:
59yoF with a history of hypertension and tobacco use presenting for evaluation of a cough. Patient has been sick for about a month with cough, congestion, chest tightness, sore throat, and loss of voice. Cough is intermittently productive and was
productive of greenish sputum yesterday. Patient has been seen multiple times by her PCP for her symptoms. She was previously treated with prednisone, Z-Dusty, and amoxicillin without any improvement. She is currently on her second course of
prednisone which she started 2 days ago. She had an outpatient chest x-ray about 4 days ago and was told by her PCP that she had 'bacteria on it' and that she has a bad case of bronchitis. Patient was told to go to the ED by her PCP due to her
lack of improvement. No fevers. Patient smokes 1 pack/day. She denies any prior history of asthma or COPD. No known sick contacts.
Past History
Past History
ED Past Medical History: HTN
ED Past Surgical History: Other (Gastric bypass)
Social History
Tobacco: Non-smoker
Alcohol: None
Drug: None
Phy Exam
General Physical Exam
General Presentation: well appearing and no apparent distress
General age: appears stated age
General Skin: warm and dry
General Habitus: normal
ENT Exam
ENT Exam: normocephalic
Cardiovascular Exam
Cardiovascular Exam: regular rate/rhythm and no edema
Pulmonary Exam
Pulmonary Exam: decreased breath sounds and other (Dry cough noted. Breath sounds mildly decreased with scant wheezes. No signs of respiratory distress. )
Neurological Exam
Neurological Exam: alert
Dennis Coma Scale
Eye Opening: Spontaneous
Verbal Response: Oriented
Motor Response: Obeys Commands
GCS Total Score: 15
Skin Exam
Skin Exam: normal color and warm/dry
Psychiatric Exam
Psychiatric Exam: normal mood/affect
Course
Orders/Labs/Results
Orders:
Orders
08/28/24 12:40
CR Chest - 2 Views Urgent
Comment:
Reason For Exam: cough
08/28/24 13:14
Electrocardiogram (*1) Urgent
Reason for Study: Shortness of Breath
EKG- Treatment ONCE
Ipratropium/Albuterol Sulfate [Duoneb] 3 ml INH R NOW STA
08/28/24 13:17
COVID-19 Antigen Urgent
Source: Nasal Swab
Complete Blood Count/With Diff Urgent
Comprehensive Metabolic Panel Urgent
Influenza A+B Rapid Molecular Urgent
ZEHRA Source: Nasal Swab
Specimen Description:
08/28/24 13:18
Troponin I Urgent
08/28/24 15:[address] Non Medication Order As Directed
Physician Order: Please give patient neb machine at discharge
Abnormal Lab Results
08/28/24
13:17
Hgb 11.9 L g/dL
(12.0-16.0)
Hct 36.3 L %
(37.0-47.0)
MCHC 32.8 L g/dL
(33.0-37.0)
RDW 16.2 H %
(11.5-14.5)
Glucose 120 H mg/dl
(70-99)
Alkaline Phosphatase 162 H U/L
(38-126)
08/28/24 13:17
08/28/24 13:17
Vital Signs
Initial and Last Documented VS:
Initial Vital Signs
Temp Pulse Resp BP Pulse Ox
98.4 F 80 18 153/88 95
08/28/24 12:36 08/28/24 12:36 08/28/24 12:36 08/28/24 12:36 08/28/24 12:36
Last Documented Vital Signs
Temp Pulse Resp BP Pulse Ox
98.4 F 80 18 153/88 95
08/28/24 12:36 08/28/24 12:36 08/28/24 12:36 08/28/24 12:36 08/28/24 12:36
MDM/Problems Addressed
Differential Diagnosis Includes:
59yoF here with cough and chest tightness x 1 month. Currently on her 2nd course of prednisone. Also treated with azithromycin and amoxil without improvement. Smokes 1ppd. No prior diagnosis of COPD. VSS. She is non-toxic appearing. Breath sounds
are mildly decreased with scant wheezes. No signs of respiratory distress noted. Differential diagnosis includes but is not limited to: bronchitis, pneumonia, COPD exacerbation
Initial ED plan: Check cardiac labs, EKG, COVID/flu swab, and CXR. DuoNeb and reassess.
*EKG
Interpreted by ED Provider?: Yes
EKG Intrepretation Date: 08/28/24
Heart Rate: 81
Rate: normal
Rhythm: sinus
Townsend: normal axis
Interval: other (QTc 494)
QRS Pattern: normal QRS
Ischemia: no ischemia
*Critical Care Note
Total Time (30-74mins, 75-104mins- exclusive of procedures): Not Applicable
Update Note
Update Note:
CXR shows 'Vague airspace consolidation at the right medial lung base, which may represent subsegmental atelectasis or pneumonia.' No leukocytosis or fever present. No ischemic changes on EKG and troponin WNL. Patient feeling improved after DuoNeb.
No indication for hospitalization. She was advised to continue her prednisone taper. Will prescribe Augmentin and doxycycline to cover for possible pneumonia. Nebulizer machine provided to patient and prescription for albuterol solution given.
Discussed importance of smoking cessation. Advised f/u with PCP and pulmonology. ED return precautions discussed. Patient discharged in stable condition.
ED Attending Note
-
Portions of this chart may have been created with voice recognition software.� Occasional wrong word or��sound alike� substitutions may have occurred due to the inherent limitations of voice recognition software.
Discharge Plan
Departure
Patient Disposition: Home (Routine Discharge)
Date of Disposition: 08/28/24
Time of Disposition: 15:44
Patient with high blood pressure during this ER visit?: Yes
Discharge Problem:
Community acquired pneumonia
Instructions: Pneumonia in adults - Discharge instructions
Prescriptions:
New
amoxicillin-pot clavulanate 875-125 mg tablet
1 tab PO BID Qty: 14 0RF
doxycycline hyclate 100 mg capsule
100 mg PO BID Qty: 14 0RF
albuterol sulfate 0.63 mg/3 mL solution for nebulization
0.63 mg inhalation Q6H PRN (Reason: shortness of breath or wheezing) Qty: 75 0RF
No Action
cholecalciferol (vitamin D3) 25 mcg (1,000 unit) Tablet
25 mcg PO DAILY
Allergy Relief
1 tab PO DAILY
esomeprazole magnesium [Nexium] 20 mg Capsule,Delayed Release(Dr/Ec)
20 mg PO DAILY
Move Free Joint Health 750 mg-100 mg- 1.65 mg-108 mg Tablet
2 tab PO DAILY
Glucosamine Chondroitin 550-30-1 mg Capsule
2 cap PO DAILY
valsartan 40 mg Tablet
20 mg PO BID Qty: 30 0RF
amlodipine 10 mg Tablet
10 mg PO DAILY Qty: 30 0RF
Referrals:
Meño Stout MD [Active] -
Jagdish Rahman MD [Family Provider] -
Activity Restrictions/Additional Instructions:
Take antibiotics as prescribed. Continue taking prednisone. Use nebulizer treatments as needed.
Please follow-up with your family doctor and pulmonology. Return to the ER with any worsening symptoms.
Interventions
Interventions:
*Risk Screen - Suicide Last Done: 08/28/24 12:36
*General Assessment Last Done: 08/28/24 12:36
*Neglect/Abuse Screening Last Done: 08/28/24 12:36
ED- Fall Risk Assessment Last Done: 08/28/24 13:31
ED- Pulmonary Assessment Last Done: 08/28/24 13:31
Discharge Date and Time
Print Language: MONGOLIAN
[2024-08-28] MEDS: DUONEB 3 ML INH (13:21)
[2024-08-28 13:26] LABS: Hematocrit 36.3 % (37.0-47.0); Hemoglobin 11.9 g/dL (12.0-16.0); Mean Corp Hgb Conc. 32.8 g/dL (33.0-37.0); Mean Corpuscular Hgb 28.2 pg (27.0-31.0); Mean Platelet Volume 8.4 fL (7.4-10.4); Platelet Count 386 10^3/uL (130-400); Red Blood Cell Count 4.22 10^6/uL (4.20-5.40); Red Cell Dist. Width 16.2 % (11.5-14.5); White Blood Cell Count 5.7 10^3/uL (4.8-10.8)
[2024-08-28 13:40] LABS: ALT (SGPT) 15 U/L (0-35); AST (SGOT) 23 U/L (14-36); Albumin 3.5 g/dl (3.5-5.0); Alkaline Phosphatase 162 U/L (38-126); Blood Urea Nitrogen 10 mg/dl (7-17); Calcium 8.5 mg/dl (8.4-10.2); Carbon Dioxide 28 mmol/L (22-30); Chloride 104 mmol/L (98-107); Glucose 120 mg/dl (70-99); Potassium 3.5 mmol/L (3.5-5.1); Sodium 140 mmol/L (135-145); Total Bilirubin 0.2 mg/dl (0.2-1.3); Total Protein 6.6 g/dl (6.3-8.2); eGFR > 60.00
[2024-08-28 13:41] LABS: COVID-19 Antigen Negative (Negative)
[2024-08-28 13:51] LABS: Troponin I < 0.012 ng/ml
[2024-08-28 13:56] LABS: % Basophils 0.2 % (0-2); % Immature Granulocytes 0.3 % (0-0.5); % Lymphocytes 29.9 % (20.5-51.1); % Monocytes 9.1 % (1.7-9.3); % Neutrophils 60.5 % (42.2-75.2); Absolute Lymphocytes 1.7 10^3/uL (1.2-3.4); Absolute Monocytes 0.5 10^3/uL (0.1-0.6); Absolute Neutrophils 3.5 10^3/uL (1.4-6.5); Nucleated Red Blood Cells % 0 %
== END 2024-08-28 15:44 | disposition home or self-care (01) ==
LOC: EMR 12:27
PROVIDERS: Emergency Medicine; Physician Assistant; EMERGENCY PHYSICIAN Emergency Medicine; FAMILY PHYSICIAN Family Medicine
DX: J18.9 Pneumonia, unspecified organism (principal); I10 Essential (primary) hypertension
CPT/HCPCS: 99285; 94640; 71046; 80053; 84484; 85025; 87502; 87811; 93005

== ENCOUNTER 2024-12-15 16:47 | Emergency (ER) | payer OTHER, SELFPAY ==
[2024-12-15 16:51] VITALS: BP 149/104
--- NOTE | 2024-12-15 17:24 | ED.GENMED ---
History of Present Illness
General
Chief Complaint: Musculo-Skeletal Complaint
Source: patient
Exam Limitations: none
Time Seen by Provider: 12/15/24 17:19
Nursing documentation reviewed up to this point in time: agreed with
History of Present Illness
History of Present Illness:
59 yr old female who fell down 2 steps landing on her right shoulder. She reports she landed on the tile floor. She complains of right shoulder pain. She denies hitting her head ;denies any other injuries.
She is right hand dominant.
Past History
Past History
ED Past Medical History: HTN
ED Past Surgical History: Other (Gastric bypass)
Social History
Tobacco: Non-smoker
Alcohol: None
Drug: None
Review of Systems
Review of Systems
Allergies reviewed?: Yes
All Other Systems: ROS reviewed and negative except as documented in HPI and ROS
Constitutional: Reports no symptoms
Musculoskeletal: Reports other (Right shoulder pain)
Skin: Reports no symptoms
Neurological: Reports no symptoms; Denies numbness
Psychiatric: Reports no symptoms
Phy Exam
General Physical Exam
General Presentation: no apparent distress
General age: appears stated age
General Skin: warm and dry
General Habitus: normal
General Mental: alert
General Hydration: appears well hydrated
Neurological Exam
Neurological Exam: alert and oriented x3
Musculoskeletal Exam
Musculoskeletal Exam: other (Right upper extremity with swelling tender palpation decreased range of motion due to pain strong pulses no obvious deformity normal distal sensation normal grasp normal cap refill)
Skin Exam
Skin Exam: normal color and warm/dry
Psychiatric Exam
Psychiatric Exam: normal mood/affect
Course
Orders/Labs/Results
Orders:
Orders
12/15/24 16:48
Shoulder, Right, Trauma [CR Shoulder, Trauma - Right] Urgent
Comment:
Reason For Exam: fall
12/15/24 17:41
Ibuprofen [Motrin] 600 mg PO NOW STA
Oxycodone [Roxicodone] 5 mg PO NOW STA
12/15/24 17:46
CT Upper Ext W/o Iv Cont Rt Urgent
Comment:
Reason For Exam: trauma
Vital Signs
Initial and Last Documented VS:
Initial Vital Signs
Temp Pulse Resp BP Pulse Ox
98.3 F 104 17 149/104 98
12/15/24 16:51 12/15/24 16:51 12/15/24 16:51 12/15/24 16:51 12/15/24 16:51
Last Documented Vital Signs
Temp Pulse Resp BP Pulse Ox
98.3 F 104 17 149/104 98
12/15/24 16:51 12/15/24 16:51 12/15/24 16:51 12/15/24 16:51 12/15/24 16:51
MDM/Problems Addressed
Differential Diagnosis Includes:
Not limited to shoulder dislocation /fracture
MDM/Problems Addressed:
X-rays show comminuted fracture of the head and neck of the right proximal humerus with numerous displaced fracture fragments. Patient is neurovascularly intact. Case reviewed with orthopedics who was able to visualize film via [place] text does
recommend CAT scan for further outpatient workup. Plan to discharge with sling as per Ortho with outpatient follow-up orthopedics in the next 2 days.
I did review the CAT scan report with orthopedics Dr. Webber. Dr. Marquez will plan to see patient on it is likely she will need surgery on Saturday. I viewed all instructions with patient she was given a prescription for pain medication
that was sent to the pharmacy. Sling was applied by nurse. Discussed ice ibuprofen Tylenol pain medication as needed. She is to return if any worsening of symptoms.
*Radiology
Radiology exam reviewed: radiology read reviewed
*Pulse Oximetry
Patient hypoxic: no
*Critical Care Note
Total Time (30-74mins, 75-104mins- exclusive of procedures): Not Applicable
Patient Management
Discussion with other providers: [employer] (Orthopedics; Dr. Webber)
ED Attending Note
-
Portions of this chart may have been created with voice recognition software.� Occasional wrong word or��sound alike� substitutions may have occurred due to the inherent limitations of voice recognition software.
Discharge Plan
Departure
Patient Disposition: Home (Routine Discharge)
Date of Disposition: 12/15/24
Time of Disposition: 19:22
Patient with high blood pressure during this ER visit?: Yes
Condition: Fair
Discharge Problem:
Fracture of shoulder
Instructions: Shoulder or upper arm fracture
Prescriptions:
New
oxycodone 5 mg capsule
5 mg PO Q6H PRN (Reason: Pain) Qty: 10 0RF
No Action
cholecalciferol (vitamin D3) 25 mcg (1,000 unit) Tablet
25 mcg PO DAILY
Allergy Relief
1 tab PO DAILY
esomeprazole magnesium [Nexium] 20 mg Capsule,Delayed Release(Dr/Ec)
20 mg PO DAILY
Move Free Joint Health 750 mg-100 mg- 1.65 mg-108 mg Tablet
2 tab PO DAILY
Glucosamine Chondroitin 550-30-1 mg Capsule
2 cap PO DAILY
valsartan 40 mg Tablet
20 mg PO BID Qty: 30 0RF
amlodipine 10 mg Tablet
10 mg PO DAILY Qty: 30 0RF
amoxicillin-pot clavulanate 875-125 mg tablet
1 tab PO BID Qty: 14 0RF
doxycycline hyclate 100 mg capsule
100 mg PO BID Qty: 14 0RF
albuterol sulfate 0.63 mg/3 mL solution for nebulization
0.63 mg inhalation Q6H PRN (Reason: shortness of breath or wheezing) Qty: 75 0RF
Referrals:
Kavon Marquez MD [Active] -
Jagdish Rahman MD [Family Provider] -
Maxx Webber MD [Active] -
Activity Restrictions/Additional Instructions:
As discussed wear sling for support until seen in evaluated by orthopedics. Ice the affected area for the next 24 hours 20 minutes at a time several times a day. You may take ibuprofen or Tylenol for discomfort however a prescription for narcotic
pain medication was sent to the pharmacy. Please take only as needed. This medication will cause drowsiness. No driving or drinking alcohol taking this medication. In addition is recommended that you take a laxative while taking this medication
as it may cause constipation. You must be seen by orthopedics in the next 2 days. Call orthopedics tomorrow to set up an appointment for Saturday
Interventions
Interventions:
*Risk Screen - Suicide Last Done: 12/15/24 16:52
*General Assessment Last Done: 12/15/24 16:52
*Neglect/Abuse Screening Last Done: 12/15/24 16:52
*ED COVID-19 Vaccine History Last Done: 12/15/24 16:52
ED-Musculoskeletal Assessment Last Done: 12/15/24 17:25
Discharge Date and Time
Print Language: FIJIAN
[2024-12-15] MEDS: MOTRIN 600 MG PO (17:47)
[2024-12-15] MEDS: ROXICODONE 5 MG PO (17:47)
[2024-12-15 19:00] VITALS: BP 156/78
[2024-12-15 19:41] VITALS: BP 156/78
== END 2024-12-15 19:30 | disposition home or self-care (01) ==
LOC: EMR 16:47
PROVIDERS: EMERGENCY PHYSICIAN Emergency Medicine; FAMILY PHYSICIAN Family Medicine
DX: S42.91XA Fracture of right shoulder girdle, part unspecified, initial encounter for closed fracture (principal); W10.9XXA Fall (on) (from) unspecified stairs and steps, initial encounter; I10 Essential (primary) hypertension; Z98.84 Bariatric surgery status
CPT/HCPCS: 99284; 73030; 73200

== ENCOUNTER → 2024-12-17 10:28 | Outpatient (REF) | payer OTHER, SELFPAY | LOC: RCS 10:28 | PROVIDERS: ATTENDING PHYSICIAN Student in an Organized Health Care Education/Training Program; FAMILY PHYSICIAN Family Medicine | DX: Z01.818 Encounter for other preprocedural examination (principal) | CPT/HCPCS: 93005 ==

== ENCOUNTER 2024-12-18 06:01 | Day surgery (SDC) | payer OTHER, SELFPAY ==
[2024-12-18] VITALS (13 sets, daily range): BP systolic 93–132; BP diastolic 53–80; BMI 29.7
[2024-12-18] MEDS: TYLENOL 1000 MG PO (06:31)
[2024-12-18] MEDS: NORMOSOL-R/PLASMALYTE-A 1000 IV (06:39)
[2024-12-18] MEDS: TRANSDERM-SCOP 1 PATCH TRANSDERM (07:01)
--- NOTE | 2024-12-18 11:30 | W.IMMPOSTOP ---
Surgical Immed Post Op Note
-
Primary Surgeon: Kavon Marquez MD
Assisting Surgeon: Harsh Robert PA-C
Pre-op Diagnosis: Right proximal humerus fracture
Post-op Diagnosis: Right proximal humerus fracture
Procedure Performed: Open reduction internal fixation right proximal humerus, biceps tenodesis
Anesthesia Type: general with regional block
Specimen / Cultures: none
Estimated Blood Loss: 100mL
Complications: none apparent
Operative Findings: Greater tuberosity fragment in continuity with articular segment
Implants: Hartley [employer]odel[employer] SPS 90mm proximal humerus plate
Operative dictation #: [id number]
== END 2024-12-18 13:45 | disposition home or self-care (01) ==
LOC: SDS 06:01
PROVIDERS: ATTENDING PHYSICIAN Student in an Organized Health Care Education/Training Program
DX: S42.201A Unspecified fracture of upper end of right humerus, initial encounter for closed fracture (principal); W10.9XXA Fall (on) (from) unspecified stairs and steps, initial encounter
CPT/HCPCS: 23615; C1713; 73030; 76000